=== PATIENT | male | born 1980 | race African-American/Black ===

== ENCOUNTER 2019-03-29 03:51 | Inpatient (IN) | payer MEDICAID ==
[~2019-03-29] VITALS: Ht 180.3 cm; Wt 76.7 kg
[2019-03-29 03:51] VITALS: BP 125/82
--- NOTE | 2019-03-29 04:00 | NUR ---
SI PRECAUTIONS IN PLACE TO BED 05 FOR SAFETY. PT CHANGED INTO GOWN. BELONGINGS BAGGED AND PICKED UP BY SECURITY.
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
--- NOTE | 2019-03-29 04:10 | NUR ---
PT AMBULATED TO WITH STEADY GAIT. URINE SAMPLE COLLECTED.
--- NOTE | 2019-03-29 04:17 | NUR ---
SANDWICH PROVIDED PER PT REQUEST FOR FOOD.
--- NOTE | 2019-03-29 04:19 | NUR ---
EMT AT BEDSIDE PERFORMING EKG.
--- NOTE | 2019-03-29 04:19 | NUR ---
EKG PERFORMED AT BEDSIDE
--- NOTE | 2019-03-29 04:19 | NUR ---
LAB AT BEDSIDE DRAWING LABS.
[2019-03-29 04:34] LABS: BASOPHILS # (AUTO) 0.1 K/uL (0.00-0.22); BASOPHILS % (AUTO) 0.6 % (0.0-2.0); EOSINOPHILS # (AUTO) 0.2 K/uL (0-0.4); EOSINOPHILS % (AUTO) 2.3 % (0.0-4.0); HEMATOCRIT 38.4 % (36-52); LYMPHOCYTES % (AUTO) 44.9 % (20.5-51.1); MEAN CORPUSCULAR HEMOGLOBIN 27 pg (27-31); MEAN CORPUSCULAR HGB CONC 34 g/dL (33-37); MEAN CORPUSCULAR VOLUME 80.5 fL (80-94); MONOCYTES # (AUTO) 0.7 K/uL (0.8-1.0); MONOCYTES % (AUTO) 8.3 % (1.7-9.3); NEUTROPHILS # (AUTO) 3.9 K/uL (1.8-7.7); NEUTROPHILS % (AUTO) 43.9 % (42.2-75.2); PLATELET COUNT (AUTO) 171 K/uL (140-450); RED BLOOD CELL COUNT(AUTO) 4.78 MIL/uL (4.20-6.10); RED CELL DISTRIBUTION WIDTH 13.7 % (11.6-13.7); WHITE BLOOD COUNT (AUTO) 8.9 K/uL (4.8-10.8)
[2019-03-29 04:42] LABS: BARBITURATE, URINE NEG. ng/ml (NEG <=200); BENZODIAZEPINE, URINE NEG. ng/mL (NEG <=200); CANNABINOID, URINE POS. ng/mL (NEG <=50); COCAINE, URINE NEG. ng/mL (NEG <=300); OPIATE, URINE NEG. ng/mL (NEG <=2000); PHENCYCLIDINE SCREEN,URINE NEG. ng/mL (NEG <=25)
[2019-03-29 04:48] LABS: ANION GAP 11.6 (8-16); CARBON DIOXIDE 28.3 mmol/L (21-32); CHLORIDE 106 mmol/L (98-107); CREATININE 1.1 mg/dL (0.7-1.3); GFR ARICAN-AMERICAN 96 mL/min (>90); GLUCOSE 93 mg/dL (74-106); POTASSIUM 3.9 mmol/L (3.5-5.1); SODIUM SERUM 142 mmol/L (136-145); UREA NITROGEN, BLOOD 8 mg/dL (7-18)
[2019-03-29 04:54] LABS: ACETAMINOPHEN < 0.5 ug/ml (10-30); ALBUMIN 3.3 g/dL (3.4-5.0); ASPARTATE AMINOTRANSFERASE 18 U/L (15-37); SALICYLATE < 2.8 mg/dL (2.8-20.0); TOTAL BILIRUBIN 0.3 mg/dL (0.0-1.0)
[2019-03-29] MEDS ORDERED: NACL 0.9% 1,000 ML IV ONE (05:00)
--- NOTE | 2019-03-29 05:00 | NUR ---
PT SLEEPING IN BED. SKIN WARM, DRY. BREATHING EVEN, UNLABORED. SITTER AT BEDSIDE.
--- NOTE | 2019-03-29 06:12 | NUR ---
LABS DRAWN AT BEDSIDE.
--- NOTE | 2019-03-29 06:19 | NUR ---
PT SLEEPING IN BED. SKIN WARM, DRY. BREATHING EVEN, UNLABORED. SITTER AT BEDSIDE.
--- NOTE | 2019-03-29 07:12 | NUR ---
RECEIVED REPORT FROM PM RN. PT SLEEPING COMFORTABLY IN HIS BED. PT ON 5150 HOLD FOR SI .
--- NOTE | 2019-03-29 07:42 | NUR ---
Dr. Wisdom evaluating patient at bedside.
--- NOTE | 2019-03-29 07:43 | NUR ---
Pt eating breakfast, calm and relaxed.
--- NOTE | 2019-03-29 07:52 | NUR ---
Telepsychiatry consultation ordered as requested by Dr. Wisdom.
--- NOTE | 2019-03-29 08:22 | NUR ---
TELEPSYCH SET AT BEDSIDE.
--- NOTE | 2019-03-29 08:29 | NUR ---
PT RESTING COMFORTABLY IN HIS BED. PT ATE 40% OF HIS BREAKFAST. NO DISTRESS NOTED.
--- NOTE | 2019-03-29 09:52 | NUR ---
pt sleeping in his bed.
--- NOTE | 2019-03-29 10:49 | NUR ---
received call from from . updated him about pt. will call at 1052 and talk to patient.
--- NOTE | 2019-03-29 10:53 | NUR ---
Dr. Arreola evaluating patient via telepsychiatry.
--- NOTE | 2019-03-29 11:18 | NUR ---
telepsych consult done with pt by . pt is aaox4. pt states to have moved in to his cousin house from [place] to [place] yesterday.pt is unable to remember cousin home adress but has phone number with him. pt states not to inform her rt now, will contact her once he is stable and good to be discharged. pt states to have been on respiridol, haladol, seroquel before pts changed to abilify and zyprexa. per pt, his meds makes him to hear more voices than before, so he stopped taking meds. pt is calm and cooperative at this time. states has no intent to harm himslef or has no suicidial ideation this moment. lying comfortably in his bed, normal behavior. will continue to monitor pt.
[2019-03-29] MEDS ORDERED: OLANZapine 5 MG TAB PO SCH (11:25)
--- NOTE | 2019-03-29 12:49 | NUR ---
F/U with potential facilities: [facility]: s/w Lori, states they did not end up having D/Cs, no beds opening today. [facility]: s/w Sara, states no openings today. [facility]: s/w Tom, states open beds. Packet faxed for review. aniceto continue to look for placement. Will contact with any updates.
--- NOTE | 2019-03-29 13:44 | NUR ---
pt sleeping comfortably in his bed. waiting for the placement facility.
[2019-03-29] MEDS ORDERED: DOCUSATE SODIUM 100 MG GELCAP PO PRN (14:00)
[2019-03-29] MEDS ORDERED: ZOLPIDEM 5 MG TAB PO PRN (14:00)
[2019-03-29] MEDS ORDERED: ONDANSETRON 4 MG/2 ML VIAL IM/IVP PRN (14:00)
[2019-03-29] MEDS ORDERED: HYDROcodone/APAP 5/325 MG 1 TAB TAB PO PRN (14:00)
[2019-03-29] MEDS ORDERED: ACETAMINOPHEN 325 MG TAB PO PRN (14:00)
[2019-03-29] MEDS ORDERED: LORazepam 2 MG/ML VIAL IVP PRN (14:00)
[2019-03-29] MEDS ORDERED: LORazepam 2 MG/ML VIAL IM/IVP PRN (14:00)
[2019-03-29] MEDS ORDERED: MORPHINE SULFATE 2 MG/ML SYR IVP PRN (14:00)
--- NOTE | 2019-03-29 14:30 | NUR ---
PT ADMITTED TO ICU FROM ER FOR 5150 HOLD, SUICIDAL IDEATION. REPORT RECEIVED FROM BARRY HOLLIS AT BEDSIDE. PT IS AAOX4, COOPERATIVE, DENIES SUICIDAL THOUGHTS AT THIS TIME. PT IS AFEBRILE, DENIES PAIN. NORMAL SINUS RHYTHM ON MONITOR. S1 +S2 HEARD. PT IS ON ROOM AIR, LUNGS SOUND CLEAR BILATERALLY. NO SIGNS OF SOB OR ANY RESPIRATORY DISTRESS NOTED. ABDOMEN SOFT, NONTENDER, BOWEL SOUNDS PRESENT. PERIPHERAL IV G18 TO LEFT HAND ASYMPTOMATIC, PATENT AND INTACT WITH GOOD BLOOD RETURN. PT IS CONTINENT, USES URINAL AT BEDSIDE. SKIN IS INTACT, DRY AND WARM TO TOUCH. BED IN LOWEST POSITION, LOCKED, AND ALARM ON. ALL SAFETY PRECAUTIONS IN PLACE. CALL LIGHT WITHIN REACH. WILL CONTINUE TO MONITOR.
--- NOTE | 2019-03-29 14:31 | NUR ---
Patient will be admitted to care of . Admited to ICU. Will go to room 6. Belongings list completed. Report to BARRY Santiago. Pt stable at time of discharge.
[2019-03-29] MEDS: NACL 0.9% 1,000 ML IV SCH (14:40)
[2019-03-29 15:41] LABS: PROTHROMBIN TIME 10.1 secs (10.8-13.4)
[2019-03-29 15:46] LABS: CHOL/HDL RATIO 2.7 (1-4.5); MAGNESIUM 1.6 mg/dL (1.8-2.4); PHOSPHORUS 3.9 mg/dL (2.5-4.9); THYROID STIMULATING HORMONE 1.6 uIU/mL (0.34-3.74)
--- NOTE | 2019-03-29 15:50 | NUR ---
PT IS BRADYCARDIC, HR IN LOW 50'S BUT ASYMPTOMATIC. RESIDENT PHYSICIAN DR. AVILES MADE AWARE. NO NEW ORDER AT THIS TIME. WILL CONTINUE TO MONITOR.
[2019-03-29 16:00] VITALS: BP 118/70
[2019-03-29] MEDS ORDERED: MULTIVITAMIN-12 10 ML, THIAMINE 100 MG, MAGNESIUM SULFATE 50% 2,000 MG, FOLIC ACID 1 MG... IV SCH ×5 (16:00)
[2019-03-29] MEDS: chlordiazePOXIDE 25 MG CAP PO SCH (16:26)
--- NOTE | 2019-03-29 17:45 | NUR ---
PT HAD 100% OF DINNER. ABLE TO EAT INDEPENDENTLY. NO SIGNS OF DISTRESS AT THIS TIME. PT IS CALM AND COOPERATIVE. SAFETY MEASURES ENSURED. WILL CONTINUE TO MONITOR.
[2019-03-29 18:25] LABS: APPEARANCE,URINE CLEAR (CLEAR); BILIRUBIN,URINE NEGATIVE (NEGATIVE); BLOOD, URINE NEGATIVE (NEGATIVE); LEUKOCYTE ESTERASE ,URINE NEGATIVE (NEGATIVE); NITRITE, URINE NEGATIVE (NEGATIVE); PH,URINE 7.5 (5.0-9.0); UGLUCOSE NEGATIVE (NEGATIVE)
[2019-03-29 18:27] LABS: COLOR,URINE STRAW (YELLOW)
[2019-03-29 18:31] LABS: BARBITURATE, URINE NEG. ng/ml (NEG <=200); BENZODIAZEPINE, URINE NEG. ng/mL (NEG <=200); CANNABINOID, URINE POS. ng/mL (NEG <=50); COCAINE, URINE NEG. ng/mL (NEG <=300); OPIATE, URINE NEG. ng/mL (NEG <=2000); PHENCYCLIDINE SCREEN,URINE NEG. ng/mL (NEG <=25)
--- NOTE | 2019-03-29 19:05 | NUR ---
REPORT GIVEN AT BEDSIDE BY DAY NURSE. PT LYING IN BED WITH EYES CLOSED. PT ON 5150 HOLD. 1:1 SITTER FOR SUICIDAL IDEATION. PT DENIES SI OR HI AT THIS TIME. PERRL BOTH EYES. ABLE TO FOLLOW AND VOICE COMMANDS. BREATHING EVEN AND UNLABORED. ON ROOM AIR. HEART SOUND REGULAR. LUNG SOUNDS SYMMETRICAL AND CLEAR BILATERALLY. BOWEL SOUNDS PRESENT IN ALL QUADRANTS.PT ON REGULAR DIET. PT CONTINENT AND USING URINAL WHEN NEEDED. SKIN INTACT. PERIPHERAL IV LOCATED IN LEFT HAND 20 GAUGE RUNNING NORMAL SALINE 60ML/HR. SCDs IN PLACE. SIDE RAILS UP. SAFETY PRECAUTIONS IN PLACE. WILL CONTINUE TO MONITOR CLOSELY.
--- NOTE | 2019-03-29 19:14 | NUR ---
REPORT GIVEN TO FUR BUYER RN FOR CONTINUITY OF CARE. PT IS IN STABLE CONDITION.
--- NOTE | 2019-03-29 19:50 | NUR ---
pt used bedside urinal independently. placed urinal back at bedside. 360 ml output of clear yellow urine. asked pt if ok "yes" asked pt if he needed anything at this time "no, i'm ok". will continue to monitor. vss. safety measures in place.
[2019-03-29 20:00] VITALS: BP 131/91
--- NOTE | 2019-03-29 20:40 | NUR ---
received phone call from sister maranda, updated regarding pt condition. phone number: [phone]
--- NOTE | 2019-03-29 21:40 | NUR ---
PT USING URINAL AT THIS TIME. ABLE TO USE INDEPENDENTLY. 600 ML OF CLEAR YELLOW URINE. VSS. WILL CONTINUE TO MONITOR.
--- NOTE | 2019-03-29 23:28 | NUR ---
pt lying in bed. asleep at this time. urinal at bedside. all safety measures in place. vss. will continue to monitor.
[2019-03-30] VITALS: BP 133/87
--- NOTE | 2019-03-30 00:20 | NUR ---
pt sat up in bed. used urinal by self. 600ml of clear yellow urine given to nurse. pt laid back down. when asked if he is doing okay or needs anything,pt replies "im fine". safety measures in place. 1:1 sitter present. vss. will continue to monitor pt
--- NOTE | 2019-03-30 02:06 | NUR ---
pt lying in bed. sleeping. respirations wnl and unlabored. oxygen on room air 98%. HR 54 with no s/s of distress noted. will continue to monitor.
--- NOTE | 2019-03-30 03:12 | NUR ---
Notified Graciela REDDY , At this time there are still no vacancy at any of the designated facilities , will notify ICU charge nurse if placement is found.
[2019-03-30 04:00] VITALS: BP 133/84
--- NOTE | 2019-03-30 04:25 | NUR ---
LAB DRAW DONE FOR PT. TOLERATED WELL. COOPERATED. PT STATES UNDERSTANDS LABS TO BE DRAWN. VSS. NO SIGNS /SYMPTOMS OF DISTRESS. WILL CONTINUE TO MONITOR
--- NOTE | 2019-03-30 04:41 | NUR ---
PT USED URINAL BY SELF. 300 OUTPUT OF CLEAR YELLOW URINE. WENT BACK TO SLEEP WHEN FINISHED. WILL CONTINUE TO MONITOR. SAFTEY MEASURES IN PLACE, 1:1 SITTER PRESENT AT BEDSIDE.
[2019-03-30 06:13] LABS: ANION GAP 10.7 (8-16); CARBON DIOXIDE 27.9 mmol/L (21-32); POTASSIUM 4.6 mmol/L (3.5-5.1)
--- NOTE | 2019-03-30 06:13 | NUR ---
pt moving in bed. states "im not cold" refused extra blankets. vss. calm. cooperative at this time denies si/hi. pt able to make needs known. responds to name. safety measures in place. will continue to monitor. no beds available at this time .will stay in icu-tele status.
[2019-03-30 06:18] LABS: MAGNESIUM 1.9 mg/dL (1.8-2.4); PHOSPHORUS 3.7 mg/dL (2.5-4.9)
[2019-03-30] MEDS: NACL 0.9% 1,000 ML IV SCH (06:21)
--- NOTE | 2019-03-30 07:01 | NUR ---
report given to day nurse . pt vss. no s/s of distress. safety measures in place. no si/hi.
[2019-03-30 07:09] LABS: BASOPHILS % (AUTO) 0.3 % (0.0-2.0); EOSINOPHILS # (AUTO) 0.3 K/uL (0-0.4); EOSINOPHILS % (AUTO) 3.1 % (0.0-4.0); HEMATOCRIT 40.7 % (36-52); HEMOGLOBIN 13.7 g/dL (12.0-18.0); LYMPHOCYTES % (AUTO) 36.6 % (20.5-51.1); MEAN CORPUSCULAR HEMOGLOBIN 27 pg (27-31); MEAN CORPUSCULAR HGB CONC 34 g/dL (33-37); MEAN CORPUSCULAR VOLUME 81.2 fL (80-94); MONOCYTES # (AUTO) 0.7 K/uL (0.8-1.0); MONOCYTES % (AUTO) 9.1 % (1.7-9.3); NEUTROPHILS # (AUTO) 4.2 K/uL (1.8-7.7); NEUTROPHILS % (AUTO) 50.9 % (42.2-75.2); PLATELET COUNT (AUTO) 168 K/uL (140-450); RED BLOOD CELL COUNT(AUTO) 5.01 MIL/uL (4.20-6.10); RED CELL DISTRIBUTION WIDTH 14.1 % (11.6-13.7); WHITE BLOOD COUNT (AUTO) 8.3 K/uL (4.8-10.8)
--- NOTE | 2019-03-30 07:15 | NUR ---
received pt from pm nurse. pt is on 5150 hold. pt sleeping but arousable. bedside monitor shows sr-sb. 45s-66s. on RA, no s/s of respiratory distress noted. lung sound clear. pt has iv to left hand # 20 running NS at 60 cc/hr. pt able to ambulate. per pm nurse. we are looking for placement for this pt. all safety measure in place, introduced myself. poc explained. pt verbalized understanding. pt stated he does not have any plan to hurt himself.
--- NOTE | 2019-03-30 07:41 | NUR ---
oral care done. offered pt breakfast tray.
--- NOTE | 2019-03-30 07:57 | NUR ---
DR. HOOD WITH HIS TEAM IN TO CHECK PT, PT STATED HE IS FINE. DENIES PAIN. GOOD APPETITE. DENIES HEARING ANY VOICE.
[2019-03-30 08:00] VITALS: BP 96/55
[2019-03-30] MEDS: chlordiazePOXIDE 25 MG CAP PO SCH ×3 (08:06→17:07)
[2019-03-30] MEDS: FOLIC ACID 1 MG TAB PO SCH (08:07)
[2019-03-30] MEDS: MULTIVITAMIN 1 TAB PO SCH (08:07)
[2019-03-30] MEDS: OLANZapine 5 MG TAB PO SCH (08:07)
[2019-03-30] MEDS: THIAMINE 100 MG TAB PO SCH (08:07)
--- NOTE | 2019-03-30 08:13 | NUR ---
PATIENT HAS BEEN SCREENED AND CATEGORIZED LOW NUTRITION RISK. PATIENT WILL BE SEEN WITHIN 7 DAYS OF ADMISSION. 04/05/[address]
--- NOTE | 2019-03-30 08:30 | NUR ---
CALLED RESIDENT DR. MARADIAGA, NOTIFIED PT HAS SINUS BRADYCARDIA BUT WITHOUT ANY DISCOMFORT.
[2019-03-30] MEDS ORDERED: LACTULOSE 20 GM/30 ML UDC PO SCH (09:30)
--- NOTE | 2019-03-30 10:10 | NUR ---
transferred pt to tele 110 A.
[2019-03-30 12:00] VITALS: BP 101/50
--- NOTE | 2019-03-30 12:42 | NUR ---
[facility] s/w Jett no beds [facility] s/w Dagmar no beds [facility] s/w Hardeep no beds [facility] s/w Caity no beds [facility] s/w Chela zambrano faxed for review
--- NOTE | 2019-03-30 12:46 | NUR ---
PT SLEEPING AFTER EATING LUNCH. PT HAD A GOOD APPETITE. ATE 100% OF THE LUNCH TRAY.
--- NOTE | 2019-03-30 12:48 | NUR ---
[facility] s/w Lo call back in 2 hours [facility] s/w Chavez no beds [facility] s/w neida no beds
--- NOTE | 2019-03-30 14:34 | NUR ---
PT STATED HE IS HUNGRY, CALLED [employer] AND OFFERED PT SANDWICH.
--- NOTE | 2019-03-30 15:53 | NUR ---
pt sleeping at this moment. no discomfort or pain noted.
[2019-03-30 16:00] VITALS: BP 114/66
--- NOTE | 2019-03-30 17:40 | NUR ---
[facility] s/w no beds
--- NOTE | 2019-03-30 17:50 | NUR ---
pt's SISTER CALLED IN regarding D/C plan. notified we are looking for placement. PT'S SISTER TALKED TO HER BROTHER Fernando on the phone.
--- NOTE | 2019-03-30 19:10 | NUR ---
RECIEVED PT. AAOX4 , NID , IV SITE INTACT AND PATENT . PT STATES I'M SCARE - OPEN CONVERSATION INITIATED BUT PT REFUSED TO SAY FURTHER ABOUT HIS ANXIETY -WILL MEDICATE ORDERED -WILL CONT. TO MONITOR.
[2019-03-30 20:00] VITALS: BP 120/62
--- NOTE | 2019-03-30 20:38 | NUR ---
ATIVAN TIV GIVEN ORDERED - V/S WNL - WILL CONT. TO MONITOR.
[2019-03-31] VITALS: BP 110/60
--- NOTE | 2019-03-31 | NUR ---
MADE ROUNDS RESP . EVEN AND UNLABORED - WILL CONT. TO MONITOR.
--- NOTE | 2019-03-31 04:00 | NUR ---
MADE ROUNDS , NO COMPLAIN MADE AT THIS TIME . RESP. EVEN AND UNLABORED.
--- NOTE | 2019-03-31 05:23 | NUR ---
Still no vacancy at any of the designated places , will endorsed to AM shift to continue to look for placement , charge nurse Marlene REDDY made aware.
--- NOTE | 2019-03-31 07:20 | NUR ---
RECEIVED BEDSIDE REPORT FROM FARMWORKER FIELD CROP NURSE. PT IS ASLEEP, NO S/S OF ANY ACUTE DISTRESS NOTED. SITTER IS AT THE DOORWAY. PT IS ON ROOM AIR, SKIN INTACT. IV SITE NOTED IN THE L HAND 20 G, SALINE LOCKED. PT IS ON A REGULAR DIET. WILL CONTINUE TO MONITOR.
[2019-03-31 08:00] VITALS: BP 108/76
[2019-03-31] MEDS: MULTIVITAMIN 1 TAB PO SCH (09:37)
[2019-03-31] MEDS: FOLIC ACID 1 MG TAB PO SCH (09:38)
[2019-03-31] MEDS: OLANZapine 5 MG TAB PO SCH (09:38)
[2019-03-31] MEDS: THIAMINE 100 MG TAB PO SCH (09:38)
[2019-03-31] MEDS: chlordiazePOXIDE 25 MG CAP PO SCH (09:38)
--- NOTE | 2019-03-31 09:40 | NUR ---
SCHEDULED AM MEDS ADMINISTERED, PT TOLERATED WELL
--- NOTE | 2019-03-31 09:58 | NUR ---
Recieved report from shift boss,there are still no avail contracted beds [facility] WILL CONT TO ASSIST IN PLACEMENT NEEDED
[2019-03-31] MEDS ORDERED: OLAN5TAB1 PO (10:44)
--- NOTE | 2019-03-31 11:39 | NUR ---
Called the following facilities [facility] s/w Jett, fax packet for wait list [facility] s/w Jeremiah fax packet for wait list [facility] s/w Sed[place] no beds [facility] s/w Hardeep, fax packet for review [facility] no answer. Left vm at [phone] [place] s/w Chela no beds [facility] s/w Lopez, packet fax for review [facility] s/w Marlene no beds [facility] s/w Kalin no beds [facility] s/w Joycelyn packet fax for review [facility] s/w Jyoti, they are only neto psych 55 and over [facility] s/w Sariah Rolle no beds, call back at 1500 [facility] s/w [place] no beds
--- NOTE | 2019-03-31 12:15 | NUR ---
PT EATING LUNCH AT THIS TIME.
--- NOTE | 2019-03-31 13:00 | NUR ---
PT HAS DC'D. PT WAS GIVEN DISCHARGE INSTRUCTIONS AND HIS PRESCRIPTION. PT VERBALIZED UNDERSTANDING TO THE IMPORTANCE OF ATTENDING HIS FOLLOW UP APPOINTMENT AND TAKING HIS ZYPREXA PRESCRIBED. PT'S CLOTHES AND PHONE WERE RETURNED BY SECURITY. IV SITE AND WRIST BANDS WERE REMOVED. PT LEFT IN STABLE CONDITION, PICKED UP BY HIS COUSIN.
== END 2019-03-31 13:00 | disposition home or self-care (01) | DRG 775 ==
LOC: MED 03:51 → MIC 13:56 → MTU 03-30 10:10
PROVIDERS: ADMIT General Practice; ATTEND General Practice
DX: F10.129 Alcohol abuse with intoxication, unspecified (principal); G92 Toxic encephalopathy; E44.1 Mild protein-calorie malnutrition; K72.90 Hepatic failure, unspecified without coma; R45.851 Suicidal ideations; E83.42 Hypomagnesemia; F20.9 Schizophrenia, unspecified; F17.210 Nicotine dependence, cigarettes, uncomplicated; F12.90 Cannabis use, unspecified, uncomplicated; Y90.6 Blood alcohol level of 120-199 mg/100 ml; Z68.23 Body mass index [BMI] 23.0-23.9, adult; Z63.5 Disruption of family by separation and divorce; Y92.89 Other specified places as the place of occurrence of the external cause
CPT/HCPCS: 36415; 71045; 80048; 80053; 80305; 81003; 82140; 83036; 83690; 83735; 84100; 84134; 84443; 85025; 85610; 85730; 87081; 93005; 96360; 99285; A9153; G0480; G0482; J2060; J3411; J3475; J3490; J7030; Q0092

== ENCOUNTER 2019-04-02 16:07 | Inpatient (IN) | payer MEDICAID ==
[~2019-04-02] VITALS: Ht 180.3 cm; Wt 70.3 kg
[~2019-04-02 16:07] MED LIST: OLAN5TAB1 PO
[2019-04-02 16:10] VITALS: BP 124/72
--- NOTE | 2019-04-02 16:20 | NUR ---
DR. ROACH BEDSIDE EVALUATING PT
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
[2019-04-02] MEDS ORDERED: OLANZapine 5 MG ODT SL ONE (16:35)
--- NOTE | 2019-04-02 16:55 | NUR ---
ACCOMPANIED PT TO THE BATHROOM WITH STEADY GAIT. PT WAS GIVEN A URINE CUP
--- NOTE | 2019-04-02 16:55 | NUR ---
URINE SPECIMEN OBTAINED. GAVE TO RETURNED GOODS SORTER
[2019-04-02 17:09] LABS: BASOPHILS % (AUTO) 0.5 % (0.0-2.0); EOSINOPHILS # (AUTO) 0.1 K/uL (0-0.4); EOSINOPHILS % (AUTO) 1.4 % (0.0-4.0); HEMOGLOBIN 14.3 g/dL (12.0-18.0); LYMPHOCYTES # (AUTO) 2.8 K/uL (2.0-11.5); LYMPHOCYTES % (AUTO) 30.9 % (20.5-51.1); MEAN CORPUSCULAR HEMOGLOBIN 27 pg (27-31); MEAN CORPUSCULAR HGB CONC 34 g/dL (33-37); MEAN CORPUSCULAR VOLUME 79.4 fL (80-94); MONOCYTES # (AUTO) 0.6 K/uL (0.8-1.0); MONOCYTES % (AUTO) 6.5 % (1.7-9.3); NEUTROPHILS # (AUTO) 5.6 K/uL (1.8-7.7); NEUTROPHILS % (AUTO) 60.7 % (42.2-75.2); PLATELET COUNT (AUTO) 189 K/uL (140-450); RED BLOOD CELL COUNT(AUTO) 5.29 MIL/uL (4.20-6.10); WHITE BLOOD COUNT (AUTO) 9.2 K/uL (4.8-10.8)
[2019-04-02 17:15] LABS: APPEARANCE,URINE CLEAR (CLEAR); BILIRUBIN,URINE NEGATIVE (NEGATIVE); BLOOD, URINE NEGATIVE (NEGATIVE); COLOR,URINE YELLOW (YELLOW); LEUKOCYTE ESTERASE ,URINE NEGATIVE (NEGATIVE); NITRITE, URINE NEGATIVE (NEGATIVE); UGLUCOSE NEGATIVE (NEGATIVE)
[2019-04-02 17:19] LABS: BARBITURATE, URINE NEG. ng/ml (NEG <=200); BENZODIAZEPINE, URINE POS. ng/mL (NEG <=200); CANNABINOID, URINE POS. ng/mL (NEG <=50); COCAINE, URINE NEG. ng/mL (NEG <=300); OPIATE, URINE NEG. ng/mL (NEG <=2000); PHENCYCLIDINE SCREEN,URINE NEG. ng/mL (NEG <=25)
--- NOTE | 2019-04-02 17:39 | NUR ---
CHECKED ON PT. LYING COMFORTABLY IN HIS BED.
[2019-04-02 17:44] LABS: ALBUMIN 3.9 g/dL (3.4-5.0); ANION GAP 13.5 (8-16); ASPARTATE AMINOTRANSFERASE 38 U/L (15-37); CARBON DIOXIDE 25.9 mmol/L (21-32); CHLORIDE 106 mmol/L (98-107); CREATININE 1.3 mg/dL (0.7-1.3); GFR ARICAN-AMERICAN 79 mL/min (>90); GLUCOSE 99 mg/dL (74-106); POTASSIUM 4.4 mmol/L (3.5-5.1); SODIUM SERUM 141 mmol/L (136-145); TOTAL BILIRUBIN 0.3 mg/dL (0.0-1.0); UREA NITROGEN, BLOOD 16 mg/dL (7-18)
[2019-04-02 17:46] LABS: SALICYLATE < 2.8 mg/dL (2.8-20.0)
[2019-04-02 17:47] LABS: ACETAMINOPHEN < 0.5 ug/ml (10-30)
--- NOTE | 2019-04-02 19:33 | NUR ---
PT SLEEPING COMFORTABLY IN BED. AROUSABLE TO VERBAL STIMULI. SKIN NORMAL, WARM, DRY. BREATHING EVEN, UNLABORED. SI PRECAUTIONS IMPLEMENTED. SITTER AT BEDSIDE FOR SAFETY.
--- NOTE | 2019-04-02 20:20 | NUR ---
TELEPSYCH REQUEST INITIATED
--- NOTE | 2019-04-02 21:07 | NUR ---
DR. NELSON, TELE PSYCH MD TALKING TO PT AT THIS TIME.
--- NOTE | 2019-04-02 22:49 | NUR ---
[facility] has received the chart via fax and will begin calling [facility] contracted facilities for bed placement.
--- NOTE | 2019-04-02 23:07 | NUR ---
Called the following [place] [facility] contracted psych facilities regarding bed placement. [facility], spoke with Joy. No beds available tonight, packet was faxed for AM review pending discharges. [facility], spoke with Brandyn. [facility], spoke with Marianne, no MediCal beds available tonight. [facility], spoke with Jannet. No beds available tonight and they are not accepting any faxed packets at this time. [facility], spoke with Philip, no beds available tonight. [facility], spoke with Caity, no beds tonight. [facility], spoke with Edwardo, no medi-jose beds tonight. [facility], spoke with Brittani, no beds tonight. [facility], spoke with Josué, no beds tonight. [facility], spoke with Rogers, no male beds available. [facility], spoke with Demarcus. No medi-jose beds available tonight. [facility], spoke with Dora, no beds available tonight. [facility], spoke with Brandyn, no beds at this time. [facility], spoke with Alverto. Possible bed, packet was faxed per request. Alver[facility] says chart will need to be reviewed and if they can accommodate the patient they will contact [facility] or [facility] ED. [facility], spoke with Amarjit, no beds available at all tonight. [facility] will continue to call for placement and will INFORM the ED if and when a bed becomes available. [facility] will continue to monitor ED notes.
--- NOTE | 2019-04-02 23:30 | NUR ---
PT IN BED ASLEEP, EASY TO AROUSE, RESPONSIVE TO VERBAL AND TACTILE STIMULI, ABLE TO MAKE NEEDS KNOWN, VSS AT THIS TIME. WILL CONTINUE TO MONITOR CLOSELY.
[2019-04-03] MEDS ORDERED: MORPHINE SULFATE 2 MG/ML SYR IVP PRN (00:15)
[2019-04-03] MEDS ORDERED: FAMOTIDINE 20 MG/2 ML VIAL IV PRN (00:15)
[2019-04-03] MEDS ORDERED: ACETAMINOPHEN 325 MG TAB PO PRN (00:15)
[2019-04-03] MEDS ORDERED: HYDROcodone/APAP 7.5/325 MG 1 TAB PO PRN (00:15)
[2019-04-03] MEDS ORDERED: DOCUSATE SODIUM 100 MG GELCAP PO PRN (00:15)
[2019-04-03] MEDS ORDERED: ONDANSETRON 4 MG/2 ML VIAL IM/IVP PRN (00:15)
[2019-04-03] MEDS ORDERED: LORazepam 2 MG/ML VIAL IM/IVP PRN ×3 (00:15→01:35)
--- NOTE | 2019-04-03 01:33 | NUR ---
RECEIVED REPORT FROM BARRY DELATORRE. TRANSFER OF CARE AT THIS TIME. PT IS SLEEPING COMFORTABLY. AROUSABLE TO VERBAL STIMULI. SKIN WARM, DRY, NORMAL IN COLOR. BREATHING EVEN, UNLABORED. AWAITING CLEAN BED ON MS FLOOR.
[2019-04-03] MEDS ORDERED: NICOTINE TRANSD SYS 14 MG/24 HR PATCH TD SCH (02:00)
[2019-04-03 02:03] LABS: PROTHROMBIN TIME 9.7 secs (10.8-13.4)
--- NOTE | 2019-04-03 02:06 | NUR ---
Patient will be admitted to care of Dr. Giles. Admited to MS. Will go to room 110B. Belongings list completed. Report to BARRY Stauffer.
[2019-04-03 02:09] LABS: CHOL/HDL RATIO 2.5 (1-4.5); FREE T4 (FREE THYROXINE) 0.58 ng/dL (0.76-1.46); MAGNESIUM 1.7 mg/dL (1.8-2.4); PHOSPHORUS 5.4 mg/dL (2.5-4.9); THYROID STIMULATING HORMONE 2.55 uIU/mL (0.34-3.74)
[2019-04-03 02:10] VITALS: BP 122/70
--- NOTE | 2019-04-03 02:10 | NUR ---
ADMITTED A 38 M FROM ER. CAME BY WHEELCHAIR WITH ER NURSE DUE TO SUICIDAL THOUGHTS. AWAKE, ALERT AND ORIENTED X4. MED SURG. ON 5150 HOLD. WITH 1;1 SITTER ORDERED. PT'S ROOM FREE OF ANY OBJECT THAT CAN HARM PT. HAS HL ON THE RT FA G#20. CLEAR AND PATENT. BED ON LOW POSITION. SIDE RAILS UP X2. PLAN OF CARE DISCUSSED AND VERBALIZED UNDERSTANDING. WILL CONTINUE TO MONITOR WHILE FOLLOWING UP ADMIT ORDERS.
[2019-04-03] MEDS: NACL 0.9% 1,000 ML IV SCH ×3 (02:13→17:08)
[2019-04-03 03:11] LABS: CKMB RELATIVE INDEX 1.1 (0.0-2.5); CREATINE KINASE MB 16.1 ng/mL (0-3.6)
[2019-04-03] MEDS ORDERED: traZODone 50 MG TAB PO SCH ×3 (03:15→21:00)
--- NOTE | 2019-04-03 03:18 | NUR ---
MAGNESIUM LEVEL 1.7 DR GARCIA MADE AWARE. HE SAID HE WILL GET BANANA BAG THIS AM AND THAT HAS SOME MAGNESIUM SULFATE IN IT.
--- NOTE | 2019-04-03 05:45 | NUR ---
GOT UP TO THE RESTROOM AND VOIDED. NO DIFFICULTY IN AMBULATION.
[2019-04-03] MEDS: chlordiazePOXIDE 25 MG CAP PO SCH ×3 (05:48→17:08)
--- NOTE | 2019-04-03 07:27 | NUR ---
RECEIVED BEDSIDE REPORT FROM RN MARCOS. PT STABLE, SLEEPING, BUT EASILY AROUSABLE. NO SIGNS OF DISTRESS NOTED. DENIES PAIN OR SOB. NO REDNESS, SWELLING, OR INFLAMMATION NOTED ON IV SITE. CALL FELIX WITHIN REACH. BED IN LOWEST POSITION. SAFETY MEASURES IN PLACE. PLAN OF CARE REVIEWED. 1:1 SITTER AT BEDSIDE.
--- NOTE | 2019-04-03 07:28 | NUR ---
ENDORSED PT IN STABLE CONDITION TO AM NURSE FOR CONTINUITY OF CARE.
[2019-04-03 08:00] VITALS: BP 127/78
--- NOTE | 2019-04-03 08:17 | NUR ---
PATIENT HAS BEEN SCREENED AND CATEGORIZED LOW NUTRITION RISK. PATIENT WILL BE SEEN WITHIN 7 DAYS OF ADMISSION. 04/09/[address]
[2019-04-03] MEDS: LORATADINE 10 MG TAB PO SCH (08:48)
[2019-04-03] MEDS: NICOTINE TRANSD SYS 14 MG/24 HR PATCH TD SCH (08:48)
[2019-04-03] MEDS: MULTIVITAMIN-12 10 ML, THIAMINE 100 MG, FOLIC ACID 1 MG, MAGNESIUM SULFATE 50% 2,000 MG... IV SCH ×5 (08:50)
--- NOTE | 2019-04-03 08:54 | NUR ---
ADMINISTERED SCHEDULED MEDICATIONS, PT TOLERATED WELL. NO OTHER NEEDS AT THIS TIME.
--- NOTE | 2019-04-03 10:20 | NUR ---
PT STABLE, SLEEPING, BUT EASILY AROUSABLE. NO SIGNS OF DISTRESS NOTED.
--- NOTE | 2019-04-03 12:26 | NUR ---
ADMINISTERED SCHEDULED LIBRIUM, PT TOLERATED WELL. NO OTHER NEEDS AT THIS TIME.
--- NOTE | 2019-04-03 14:26 | NUR ---
PT STABLE, SLEEPING, BUT EASILY AROUSABLE. NO SIGNS OF DISTRESS NOTED. CHEST RISE AND FALL VISIBLY NOTED.
[2019-04-03 16:00] VITALS: BP 118/75
--- NOTE | 2019-04-03 16:15 | NUR ---
VITAL SIGNS TAKEN, PT STABLE. NO NEEDS AT THIS TIME.
--- NOTE | 2019-04-03 17:11 | NUR ---
ADMINISTERED SCHEDULED LIBRIUM AND CHANGED IVF BAG. PT TOLERATED WELL.
--- NOTE | 2019-04-03 19:20 | NUR ---
ENDORSED PT TO BARRY ALEXANDRE FOR CONTINUITY OF CARE. PT STABLE.
--- NOTE | 2019-04-03 19:21 | NUR ---
RECEIVED BEDSIDE REPORT FROM BARRY CHRISTIANSON. NO SIGNS OF S/S NOTED IN ROOM AIR. IV SITE ON RFA, 22G, INTACT, PATENT, ASYMPTOMATIC, INFUSING NS AT 100MLS/HR. SKIN INTACT, WARM AND DRY TO TOUCH. BED IN LOWEST POSITION. SAFETY MEASURES IN PLACE. PLAN OF CARE REVIEWED. SITTER AT BEDSIDE. WILL CONTINUE TO MONITOR.
[2019-04-03] MEDS ORDERED: OLANZapine 5 MG TAB PO SCH (21:00)
[2019-04-03] MEDS: OLANZapine 5 MG TAB PO SCH (21:13)
--- NOTE | 2019-04-03 21:13 | NUR ---
GIVEN TRAZODONE AND OLANZAPINE MD ORDERED. PT TOLERATED WELL. WILL CONTINUE TO MONITOR.
[2019-04-04] VITALS: BP 122/79
[2019-04-04] MEDS: chlordiazePOXIDE 25 MG CAP PO SCH ×2 (00:18→05:21)
--- NOTE | 2019-04-04 00:18 | NUR ---
GIVEN LIBRIUM MD ORDERED. PT TOLERATED WELL. VS CHECKED, WITHIN NORMAL RANGE. WILL CONTINUE TO MONITOR.
--- NOTE | 2019-04-04 01:42 | NUR ---
Still no update on bed placement at contracted [place] Care facilities. Unit will be notified if a bed becomes available. [facility] will continue to monitor RN/MD notes.
[2019-04-04] MEDS: NACL 0.9% 1,000 ML IV SCH (03:28)
--- NOTE | 2019-04-04 03:28 | NUR ---
NS FLUID DONE. HUNG NEW NS 1,000ML, RUNNING @100MLS/HR. PT SLEEPING IN BED.
--- NOTE | 2019-04-04 05:21 | NUR ---
GIVEN LIBRIUM MD ORDERED. PT TOLERATED WELL. BED IN LOW POSITION, WILL CONTINUE TO MONITOR.
--- NOTE | 2019-04-04 06:34 | NUR ---
PT AWAKE, LYING IN THE BED. NO ACUTE DISTRESS NOTED. PT IN STABLE CONDITION.
--- NOTE | 2019-04-04 07:25 | NUR ---
RECEIVED HAND OFF REPORT FROM NEGATIVE STRIPPER NURSE. PT IS AWAKE IN BED PT APPEARS STABLE AND IN NO APPARENT DISTRESS. ALL SAFETY MEASURES ARE IN PLACE WILL CONTINUE TO MONITOR.
[2019-04-04 07:30] LABS: BASOPHILS % (AUTO) 0.4 % (0.0-2.0); EOSINOPHILS # (AUTO) 0.3 K/uL (0-0.4); EOSINOPHILS % (AUTO) 4.1 % (0.0-4.0); HEMATOCRIT 38.3 % (36-52); HEMOGLOBIN 12.9 g/dL (12.0-18.0); LYMPHOCYTES # (AUTO) 3.4 K/uL (2.0-11.5); LYMPHOCYTES % (AUTO) 43.8 % (20.5-51.1); MEAN CORPUSCULAR HEMOGLOBIN 27 pg (27-31); MEAN CORPUSCULAR HGB CONC 34 g/dL (33-37); MEAN CORPUSCULAR VOLUME 79.8 fL (80-94); MONOCYTES # (AUTO) 0.6 K/uL (0.8-1.0); MONOCYTES % (AUTO) 7.2 % (1.7-9.3); NEUTROPHILS # (AUTO) 3.4 K/uL (1.8-7.7); NEUTROPHILS % (AUTO) 44.5 % (42.2-75.2); PLATELET COUNT (AUTO) 164 K/uL (140-450); RED BLOOD CELL COUNT(AUTO) 4.79 MIL/uL (4.20-6.10); RED CELL DISTRIBUTION WIDTH 13.8 % (11.6-13.7); WHITE BLOOD COUNT (AUTO) 7.7 K/uL (4.8-10.8)
[2019-04-04 08:00] VITALS: BP 120/58
[2019-04-04 08:11] LABS: MAGNESIUM 1.7 mg/dL (1.8-2.4); PHOSPHORUS 3.9 mg/dL (2.5-4.9)
[2019-04-04 08:15] LABS: ANION GAP 13.2 (8-16); CARBON DIOXIDE 26.4 mmol/L (21-32); CREATININE 1.1 mg/dL (0.7-1.3); POTASSIUM 4.6 mmol/L (3.5-5.1)
[2019-04-04] MEDS ORDERED: MAGNESIUM OXIDE 400 MG TAB PO SCH (09:11)
[2019-04-04] MEDS: OLANZapine 5 MG TAB PO SCH (09:15)
[2019-04-04] MEDS: NICOTINE TRANSD SYS 14 MG/24 HR PATCH TD SCH (09:16)
[2019-04-04] MEDS: LORATADINE 10 MG TAB PO SCH (09:16)
[2019-04-04] MEDS: MULTIVITAMIN-12 10 ML, THIAMINE 100 MG, FOLIC ACID 1 MG, MAGNESIUM SULFATE 50% 2,000 MG... IV SCH ×5 (09:19)
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
[2019-04-04 11:05] VITALS: BP 121/57
--- NOTE | 2019-04-04 11:46 | NUR ---
REVIEWED DISCHARGE INFORMATION GAVE PATIENT ADDRESS FOR FOLLOW UP APPOINTMENT. ANSWERED ALL QUESTIONS. REMOVED IV IV TIP INTACT. PT AMBULATED OFF THE UNIT WITH ALL PERSONAL BELONGINGS. PT HAD DISCHARGE PRESCRIPTION PT RECEIVED BUS PASS.
== END 2019-04-04 11:25 | disposition home or self-care (01) | DRG 775 ==
LOC: MED 16:07 → MTU 04-03 00:18
PROVIDERS: ADMIT General Practice; ATTEND General Practice
DX: F10.129 Alcohol abuse with intoxication, unspecified (principal); G92 Toxic encephalopathy; E83.42 Hypomagnesemia; E83.39 Other disorders of phosphorus metabolism; F20.9 Schizophrenia, unspecified; R45.851 Suicidal ideations; F17.210 Nicotine dependence, cigarettes, uncomplicated; G47.00 Insomnia, unspecified; Y90.6 Blood alcohol level of 120-199 mg/100 ml; Z79.899 Other long term (current) drug therapy; Z91.14 Patient's other noncompliance with medication regimen; Z83.3 Family history of diabetes mellitus
CPT/HCPCS: 36415; 71045; 80048; 80053; 80305; 81003; 82140; 82150; 82550; 82553; 83036; 83605; 83690; 83735; 83880; 84100; 84439; 84443; 84484; 85025; 85610; 85730; 87081; 93005; 99285; A9153; G0480; G0482; J3411; J3475; J3490; J7030

== ENCOUNTER 2019-04-07 00:45 | Emergency (ER) | payer MEDICAID ==
[~2019-04-07] VITALS: Ht 185.4 cm; Wt 81.6 kg
[2019-04-07 00:47] VITALS: BP_SYST 112; BP_SYST 89; BP_DIAS 58; BP_DIAS 59
--- NOTE | 2019-04-07 00:47 | NUR ---
PT B[facility]ANCE [facility], TAKEN TO BED 5
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
[2019-04-07 01:20] LABS: APPEARANCE,URINE CLEAR (CLEAR); BILIRUBIN,URINE NEGATIVE (NEGATIVE); BLOOD, URINE NEGATIVE (NEGATIVE); COLOR,URINE YELLOW (YELLOW); LEUKOCYTE ESTERASE ,URINE NEGATIVE (NEGATIVE); NITRITE, URINE NEGATIVE (NEGATIVE); UGLUCOSE NEGATIVE (NEGATIVE)
[2019-04-07 01:28] LABS: BARBITURATE, URINE NEG. ng/ml (NEG <=200); BENZODIAZEPINE, URINE POS. ng/mL (NEG <=200); CANNABINOID, URINE POS. ng/mL (NEG <=50); COCAINE, URINE NEG. ng/mL (NEG <=300); OPIATE, URINE NEG. ng/mL (NEG <=2000); PHENCYCLIDINE SCREEN,URINE NEG. ng/mL (NEG <=25)
[2019-04-07 01:31] LABS: BASOPHILS % (AUTO) 0.4 % (0.0-2.0); EOSINOPHILS # (AUTO) 0.4 K/uL (0-0.4); EOSINOPHILS % (AUTO) 3.5 % (0.0-4.0); HEMATOCRIT 36.2 % (36-52); HEMOGLOBIN 12.4 g/dL (12.0-18.0); LYMPHOCYTES # (AUTO) 4.2 K/uL (2.0-11.5); LYMPHOCYTES % (AUTO) 34.2 % (20.5-51.1); MEAN CORPUSCULAR HEMOGLOBIN 27 pg (27-31); MEAN CORPUSCULAR HGB CONC 34 g/dL (33-37); MEAN CORPUSCULAR VOLUME 79.6 fL (80-94); MONOCYTES # (AUTO) 0.7 K/uL (0.8-1.0); MONOCYTES % (AUTO) 5.4 % (1.7-9.3); NEUTROPHILS # (AUTO) 6.9 K/uL (1.8-7.7); NEUTROPHILS % (AUTO) 56.5 % (42.2-75.2); PLATELET COUNT (AUTO) 165 K/uL (140-450); RED BLOOD CELL COUNT(AUTO) 4.55 MIL/uL (4.20-6.10); RED CELL DISTRIBUTION WIDTH 13.9 % (11.6-13.7); WHITE BLOOD COUNT (AUTO) 12.3 K/uL (4.8-10.8)
[2019-04-07 01:43] LABS: ANION GAP 12.7 (8-16); CARBON DIOXIDE 28.6 mmol/L (21-32); CHLORIDE 105 mmol/L (98-107); CREATININE 1.3 mg/dL (0.7-1.3); GFR ARICAN-AMERICAN 79 mL/min (>90); GLUCOSE 101 mg/dL (74-106); POTASSIUM 4.3 mmol/L (3.5-5.1); SODIUM SERUM 142 mmol/L (136-145); UREA NITROGEN, BLOOD 13 mg/dL (7-18)
[2019-04-07 01:57] LABS: ACETAMINOPHEN < 0.5 ug/ml (10-30); ALBUMIN 3.3 g/dL (3.4-5.0); ASPARTATE AMINOTRANSFERASE 29 U/L (15-37); SALICYLATE 2.8 mg/dL (2.8-20.0); THYROID STIMULATING HORMONE 1.48 uIU/mL (0.34-3.74); TOTAL BILIRUBIN 0.3 mg/dL (0.0-1.0)
--- NOTE | 2019-04-07 02:52 | NUR ---
PT CALM AND SLEEPING. NO BEHAVIOR ISSUES. ERMD AWARE. WILL CONTINUE TO MONITOR 1:1 WITH ED STAFF.
--- NOTE | 2019-04-07 05:45 | NUR ---
PT SPOKE WITH DR MUHAMMAD VIA TELEPSYCH
--- NOTE | 2019-04-07 05:53 | NUR ---
SPOKE WITH DR MUHAMMAD AND TAWANNA OKAY FOR RELEASE OF PT. DR TRIPLETT AWARE.
[2019-04-07 06:28] VITALS: BP 110/68
--- NOTE | 2019-04-07 06:28 | NUR ---
PT DISCHARGED WITH PAPERWORK. NO RX PROVIDED. EDUCATED PT REGARDING D/C DIAGNOSIS. PT VERBALIZED UNDERSTANDING OF TEACHING. TOLD PT TO FOLLOW UP WITH PCP/PSYCHIATRIST AND WHEN TO RETURN TO ED. PT VSS. ABLE TO AMBULATE WITH SLOW STEADY GAIT. PROVIDED PT WITH CAB VOUCHER. ALL QUESTIONS ANSWERED.
== END 2019-04-07 06:28 | disposition home or self-care (01) ==
LOC: MED 00:45
DX: R45.851 Suicidal ideations (principal); R44.3 Hallucinations, unspecified; Z79.899 Other long term (current) drug therapy; Z91.14 Patient's other noncompliance with medication regimen
CPT/HCPCS: 36415; 80053; 80305; 81003; 84443; 85025; 99284; G0480; G0482

== ENCOUNTER 2019-04-10 02:33 | Inpatient (IN) | payer MEDICAID ==
[~2019-04-10] VITALS: Ht 185.4 cm; Wt 81.6 kg
[2019-04-10 02:40] VITALS: BP 129/74
--- NOTE | 2019-04-10 02:40 | NUR ---
PT TRANSFERRED FROM [facility] TO BED 5 BY TRENT
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
[2019-04-10 03:21] LABS: EOSINOPHILS # (AUTO) 0.3 K/uL (0-0.4); HEMOGLOBIN 13.9 g/dL (12.0-18.0); MONOCYTES # (AUTO) 0.6 K/uL (0.8-1.0); WHITE BLOOD COUNT (AUTO) 8.5 K/uL (4.8-10.8)
[2019-04-10 03:28] LABS: BASOPHILS % (AUTO) 0.6 % (0.0-2.0); EOSINOPHILS % (AUTO) 3.3 % (0.0-4.0); HEMATOCRIT 40.4 % (36-52); LYMPHOCYTES # (AUTO) 3.6 K/uL (2.0-11.5); LYMPHOCYTES % (AUTO) 42.6 % (20.5-51.1); MEAN CORPUSCULAR HEMOGLOBIN 27 pg (27-31); MEAN CORPUSCULAR HGB CONC 35 g/dL (33-37); MEAN CORPUSCULAR VOLUME 79.3 fL (80-94); MONOCYTES % (AUTO) 7.5 % (1.7-9.3); NEUTROPHILS # (AUTO) 3.9 K/uL (1.8-7.7); PLATELET COUNT (AUTO) 192 K/uL (140-450); RED BLOOD CELL COUNT(AUTO) 5.09 MIL/uL (4.20-6.10); RED CELL DISTRIBUTION WIDTH 13.9 % (11.6-13.7)
[2019-04-10 03:44] LABS: APPEARANCE,URINE CLEAR (CLEAR); BILIRUBIN,URINE NEGATIVE (NEGATIVE); BLOOD, URINE NEGATIVE (NEGATIVE); COLOR,URINE YELLOW (YELLOW); LEUKOCYTE ESTERASE ,URINE NEGATIVE (NEGATIVE); NITRITE, URINE NEGATIVE (NEGATIVE); UGLUCOSE NEGATIVE (NEGATIVE)
[2019-04-10 03:50] LABS: ALBUMIN 3.7 g/dL (3.4-5.0); ANION GAP 13.8 (8-16); ASPARTATE AMINOTRANSFERASE 27 U/L (15-37); CARBON DIOXIDE 28.2 mmol/L (21-32); CHLORIDE 104 mmol/L (98-107); CREATININE 1.1 mg/dL (0.7-1.3); GFR ARICAN-AMERICAN 96 mL/min (>90); GLUCOSE 87 mg/dL (74-106); SALICYLATE 3.6 mg/dL (2.8-20.0); SODIUM SERUM 142 mmol/L (136-145); TOTAL BILIRUBIN 0.3 mg/dL (0.0-1.0); UREA NITROGEN, BLOOD 11 mg/dL (7-18)
[2019-04-10 03:51] LABS: ACETAMINOPHEN < 0.5 ug/ml (10-30)
[2019-04-10 04:14] LABS: BARBITURATE, URINE NEG. ng/ml (NEG <=200); BENZODIAZEPINE, URINE POS. ng/mL (NEG <=200); CANNABINOID, URINE POS. ng/mL (NEG <=50); COCAINE, URINE NEG. ng/mL (NEG <=300); OPIATE, URINE NEG. ng/mL (NEG <=2000); PHENCYCLIDINE SCREEN,URINE NEG. ng/mL (NEG <=25)
[2019-04-10] MEDS ORDERED: NACL 0.9% 1,000 ML IV ONE (04:55)
[2019-04-10] MEDS ORDERED: ONDANSETRON 4 MG/2 ML VIAL IM/IVP PRN (05:40)
[2019-04-10] MEDS ORDERED: LORazepam 2 MG/ML VIAL IVP PRN (05:40)
[2019-04-10] MEDS ORDERED: HYDROcodone/APAP 7.5/325 MG 1 TAB PO PRN (05:40)
[2019-04-10] MEDS ORDERED: DOCUSATE SODIUM 100 MG GELCAP PO PRN (05:40)
[2019-04-10] MEDS ORDERED: ACETAMINOPHEN 325 MG TAB PO PRN (05:40)
[2019-04-10] MEDS ORDERED: FAMOTIDINE 20 MG/2 ML VIAL IV PRN (05:40)
--- NOTE | 2019-04-10 05:40 | NUR ---
RECEIVED REPORT FROM BARRY ADHIKARI. PT IN BED ASLEEP RESTING, VSS AT THIS TIME.
[2019-04-10] MEDS ORDERED: MULTIVITAMIN-12 10 ML, THIAMINE 100 MG, FOLIC ACID 1 MG, MAGNESIUM SULFATE 50% 2,000 MG... IV SCH ×5 (07:00)
--- NOTE | 2019-04-10 07:19 | NUR ---
REPORT GIVEN TO BARRY MACIEL. PT IN STABLE CONDITION AT THIS TIME. 1:1 SITTER AT BEDSIDE.
--- NOTE | 2019-04-10 07:20 | NUR ---
PT ASLEEP. EASILY AROUSBLE BY TOUCH. PT AAO X4, FULL CLEAR SPEECH. EVEN AND UNLABORED BREATHING. NO SIGNS AND SYMPTOMS OF DISTRESS NOTED. SAFETY ENSURED. 1:1 SITTER AT BEDSIDE.
[2019-04-10 07:43] VITALS: BP 126/72
--- NOTE | 2019-04-10 07:43 | NUR ---
RECEIVED BEDSIDE REPORT FROM ER NURSE JANELL. PT IS AAOX4. AMBULATORY BUT ON FALL AND SEIZURE PRECAUTIONS DUE TO ALCOHOL INTOXICATION. PT SKIN IS INTACT. PT HAS IV IN THE LEFT FA, 18G. WILL INFUSE BANANA BAG WHEN BROUGHT BY PHARMACY. EXPLAINED POC TO PT. PT VERBALIZED UNDERSTANDING. NO SITTER CURRENTLY AVAILABLE. WILL SIT WITH OTHERS' HELP WHILE SITTER ARRIVES. BED IN LOW POSITION, CALL LIGHT WITHIN REACH.
--- NOTE | 2019-04-10 07:43 | NUR ---
Patient will be admitted to care of DR HOOD. Admited to TELE . Will go to room 122 B. Belongings list completed. Report to BARRY WRIGHT
[2019-04-10 07:50] LABS: PROTHROMBIN TIME 9.5 secs (10.8-13.4)
[2019-04-10 08:15] LABS: CHOL/HDL RATIO 2.7 (1-4.5); FREE T4 (FREE THYROXINE) 0.68 ng/dL (0.76-1.46); THYROID STIMULATING HORMONE 2.33 uIU/mL (0.34-3.74)
[2019-04-10] MEDS: chlordiazePOXIDE 25 MG CAP PO SCH ×4 (10:12→23:45)
--- NOTE | 2019-04-10 10:19 | NUR ---
ADMINISTERED MORNING MEDS TO PT. PT TOLERATED WELL. WILL CONTINEU TO ROUND FREQUENTLY ON PT. BED IN LOW POSITION, SITTER 1:1 AT BEDSIDE.
[2019-04-10] MEDS: MULTIVITAMIN-12 10 ML, THIAMINE 100 MG, FOLIC ACID 1 MG, MAGNESIUM SULFATE 50% 2,000 MG... IV SCH ×5 (11:47)
--- NOTE | 2019-04-10 12:47 | NUR ---
PT SLEEPING IN BED. ALL NEEDS CURRENTLY MET. WILL CONTINUE TO ROUND FREQUENTLY ON PT.
--- NOTE | 2019-04-10 12:55 | NUR ---
1200 DOSE OF LITHIUM NOT ADMINISTERED DUE TO 0600 DOSE GIVEN AT 1012. PER PHARMACY, OK TO SKIP 1200 DOSE AND GIVE 1800 DOSE.
--- NOTE | 2019-04-10 13:37 | NUR ---
PT SLEEPING. ALL NEEDS MET. NO SIGNS OF DISTRESS OR PAIN NOTED. WILL CONTINEU TO ROUND FREQUENTYL ON PT. BED IN LOW POSITION, CALL LIGHT WITHIN REACH.
--- NOTE | 2019-04-10 15:36 | NUR ---
PT RESTING IN BED AWAITING LATE LUNCH TRAY TO BE DELIVERED. WILL CONTINUE TO ROUND FREQUENTLY ON PT. SITTER 1:1 AT BEDSIDE
[2019-04-10 16:00] VITALS: BP 119/68
--- NOTE | 2019-04-10 17:36 | NUR ---
PT RESTING IN BED. ALL NEEDS MET. WILL CONTINUE TO ROUND FREQUENTLY ON PT.
--- NOTE | 2019-04-10 19:45 | NUR ---
RECEIVED REPORT FROM KYLE REDDY DAYSHIFT NURSE AT BEDSIDE FOR CONTINUITY OF CARE, PT IN STABLE CONDITION. PT IN BED AOX4, SKIN INTACT WITH IV SITE 18G LEFT F/A. RUNNING A BANANA BAG AT 100MLS/HR. PT HAS NO C/O VOICED AT THIS TIME.
--- NOTE | 2019-04-10 19:46 | NUR ---
ENDORSED PT TOT PHYSICIAN'S AIDE FOR CONTINUITY OF CARE. PT IN STABLE CONDITION AT THIS TIME.
[2019-04-10 20:00] VITALS: BP 137/78
--- NOTE | 2019-04-10 20:15 | NUR ---
PT IN BED AOX4. HE HAS NO C/O OF PAIN OR DISTRESS NOTED. PT REQUESTED JUICE WHICH WAS GIVEN TO PT. HE ALSO VOIDED 400MLS IN URINAL. V/S FOLLOWS T 97.8 P 64 R 18 B/P 137/78 02 99% ON ROOM AIR. BED LOW AND CALL FELIX IN REACH. 1:1 SITTER AT BEDSIDE, DUE TO 5150 STATUS.
--- NOTE | 2019-04-10 21:00 | NUR ---
PT GIVEN ORDERED ZYPREXA , DR. WILLIAMSON CONSULTED WITH PT AT BEDSIDE. HE SAID THAT HE WANTS TO KEEP PT OVERNIGHT AND HE WILL BE BACK TOMORROW TO RE-EVALUATE PT IN AM. 1:1 SITTER AT BEDSIDE.
[2019-04-10] MEDS ORDERED: OLANZapine 5 MG TAB PO SCH (21:10)
--- NOTE | 2019-04-10 22:00 | NUR ---
PT IN BED SLEEPING NO S/S OF PAIN OR DISTRESS NOTED. IV FLUIDS COMPLETED. ANOTHER BANANA BAG IS ORDERED FOR TOMORROW AT 11AM. PT IS SALINE LOCKED AT THIS TIME. 1:1 SITTER AT BEDSIDE.
[2019-04-11] VITALS: BP 125/78
--- NOTE | 2019-04-11 | NUR ---
PT IN BED GIVEN ORDERED LIBRIUM, PT EDUCATION PROVIDED. PT VERBALIZED THAT DR. WILLIAMSON WAS HERE TO SEE HIM. PT REMINDED THAT HE WILL BE BACK IN AM TO REEVALUATE PT STATUS. PT VERBALIZED UNDERSTANDING. V/S FOLLOWS T 97.4 P 52 R 18 B/P 125/78 02 99% ON ROOM AIR. PT ALSO VOIDED ANOTHER 400MLS FROM BEDSIDE URINAL. NO S/S OF PAIN OR DISTRESS NOTED, ALL REQUESTED NEEDS ATTENDED AND 1:1 SITTER AT BEDSIDE.
[2019-04-11 04:00] VITALS: BP 130/59
[2019-04-11] MEDS: chlordiazePOXIDE 25 MG CAP PO SCH ×2 (06:00→12:02)
--- NOTE | 2019-04-11 07:32 | NUR ---
ENDORSE POC TO OKSANA RN DAYSHIFT NURSE AT BEDSIDE FOR CONTINUITY OF CARE, PT IN STABLE CONDITION.
--- NOTE | 2019-04-11 07:33 | NUR ---
RECEIVED BEDSIDE REPORT FROM LACE PAPER MACHINE OPERATOR NURSE FOR CONTINUITY OF CARE. PATIENT IS AWAKE AND LAYING SUPINE ON BED AT THIS TIME. PATIENT IS AAOX4. PATIENT IS COOPERATIVE AND CALM. RESPIRATION EVEN AND UNLABORED ON RA. DENIED OF HEARING VOICE OR SUICIDAL IDEATION. NO SIGNS OF DISTRESS NOTED. IV ON LFA 18G, CLEAN AND INTACT, SL. SKIN CLEAN AND DRY. PATIENT IS CONTINENT AND ABLE TO AMBULATE. TELE MONITOR ATTACHED. DISCUSSED PLAN OF CARE WITH AND PATIENT VERBALIZED UNDERSTANDING AND SAID " DR WILLIAMSON TALKED TO ME YESTERDAY AND I MIGHT BE GOING HOME TODAY." SAFETY MEASURES IN PLACE. BED IN LOW POSITION AND 1:1 SITTER AT BEDSIDE.
[2019-04-11 07:59] LABS: BASOPHILS % (AUTO) 0.3 % (0.0-2.0); EOSINOPHILS # (AUTO) 0.4 K/uL (0-0.4); EOSINOPHILS % (AUTO) 5.2 % (0.0-4.0); HEMATOCRIT 40.9 % (36-52); HEMOGLOBIN 13.8 g/dL (12.0-18.0); LYMPHOCYTES # (AUTO) 2.5 K/uL (2.0-11.5); LYMPHOCYTES % (AUTO) 36.5 % (20.5-51.1); MEAN CORPUSCULAR HEMOGLOBIN 27 pg (27-31); MEAN CORPUSCULAR HGB CONC 34 g/dL (33-37); MEAN CORPUSCULAR VOLUME 80.3 fL (80-94); MONOCYTES # (AUTO) 0.6 K/uL (0.8-1.0); MONOCYTES % (AUTO) 8.7 % (1.7-9.3); NEUTROPHILS # (AUTO) 3.3 K/uL (1.8-7.7); NEUTROPHILS % (AUTO) 49.3 % (42.2-75.2); PLATELET COUNT (AUTO) 170 K/uL (140-450); RED CELL DISTRIBUTION WIDTH 14.2 % (11.6-13.7); WHITE BLOOD COUNT (AUTO) 6.8 K/uL (4.8-10.8)
[2019-04-11 08:00] VITALS: BP 106/55
[2019-04-11] MEDS ORDERED: CALCIUM ACETATE 667 MG TAB PO SCH (08:00)
[2019-04-11 08:23] LABS: POTASSIUM 4.3 mmol/L (3.5-5.1)
[2019-04-11 08:24] LABS: ANION GAP 10.4 (8-16); CARBON DIOXIDE 29.9 mmol/L (21-32); CREATININE 1.2 mg/dL (0.7-1.3)
--- NOTE | 2019-04-11 08:45 | NUR ---
ADMINISTERED MED PER MD ORDER, PATIENT TOLERATED WELL. MED EDUCATION PROVIDED TO PATIENT AND PATIENT SAID OK. PATIENT IS RESTING ON BED AT THIS TIME. DENIED SUICIDAL IDEATION OR HEARING VOICE. NO SIGNS OF DISTRESS NOTED. TELE MONITOR ATTACHED. SAFETY MEASURES IN PLACE. BED IN LOW POSITION AND 1:1 SITTER BY BEDSIDE.
[2019-04-11] MEDS ORDERED: MULTIVITAMIN-12 10 ML, THIAMINE 100 MG, MAGNESIUM SULFATE 50% 2,000 MG, FOLIC ACID 1 MG... IV SCH ×5 (09:15)
--- NOTE | 2019-04-11 09:45 | NUR ---
PATIENT IS RESTING ON BED AT THIS TIME. AROUSABLE TO VOICE. PATIENT DENIED OF HEARING VOICE AND SUICIDAL IDEATION. NO SIGNS OF DISTRESS NOTED. TELE MONITOR ATTACHED. FALL PRECAUTION AND SEIZURE PRECAUTION IN PLACE. BED IN LOW POSITION AND 1:1 SITTER BY BEDSIDE.
[2019-04-11] MEDS: MULTIVITAMIN-12 10 ML, THIAMINE 100 MG, FOLIC ACID 1 MG, MAGNESIUM SULFATE 50% 2,000 MG... IV SCH ×5 (11:17)
--- NOTE | 2019-04-11 11:17 | NUR ---
ADMINISTERED BANANA BAG PER MD ORDER, PATIENT IS AWAKE AND AMBULATE TO BATHROOM WITH STEADY GAIT. DENIED SUICIDAL IDEATION OR HEARING VOICE. NO SIGN OF DISTRESS NOTED. TELE MONITOR ATTACHED. BED IN LOW POSITION AND 1:1 SITTER BY BEDSIDE.
[2019-04-11 12:00] VITALS: BP 100/56
--- NOTE | 2019-04-11 12:02 | NUR ---
ADMINISTERED MED PER MD ORDER, PATIENT TOLERATED WELL. MED EDUCATION PROVIDED TO PATIENT AND PATIENT VERBALIZED UNDERSTANDING. PATIENT IS RESTING ON BED. DENIED SUICIDAL IDEATION OR HEARING VOICE. NO SIGNS OF DISTRESS NOTED. TELE MONITOR ATTACHED. SAFETY MEASURES IN PLACE. BED IN LOW POSITION AND 1:1 SITTER BY BEDSIDE.
--- NOTE | 2019-04-11 14:05 | NUR ---
DR WILLIAMSON IS TALKING TO PATIENT AT BEDSIDE. NO SIGNS OF DISTRESS NOTED. TELE MONITOR ATTACHED. SAFETY MEASURES IN PLACE. BED IN LOW POSITION AND 1:1 SITTER.
--- NOTE | 2019-04-11 15:06 | NUR ---
DR JEFFERSON IS TALKING TO PATIENT AT BEDSIDE. NO SIGNS OF DISTRESS NOTED. TELE MONITOR IN PLACE. SAFETY MEASURES IN PLACE. BED IN LOW POSITION AND CALL LIGHT WITHIN REACH.
--- NOTE | 2019-04-11 15:15 | NUR ---
DR JEFFERSON EXPLAINED TO PATIENT AT BEDSIDE THAT HE IS NOT MEDICALLY CLEAR FOR DISCHARGE BUT PATIENT INSISTED OF LEAVING AND REQUESTED TO LEAVE AMA.
--- NOTE | 2019-04-11 15:20 | NUR ---
REMOVED IV AND CANNULA INTACT. REMOVED ALL ARM BANDS. CALLED SECURITY AND RETURNED ALL PATIENT'S BELONGINGS. PATIENT CHANGED INTO HIS OWN CLOTHES AND LEFT AT THIS TIME.
== END 2019-04-11 15:20 | disposition left against medical advice (07) | DRG 817 ==
LOC: MED 02:33 → MTU 06:59
PROVIDERS: ADMIT General Practice; ATTEND General Practice
DX: T40.7X2A Poisoning by cannabis (derivatives), intentional self-harm, initial encounter (principal); G92 Toxic encephalopathy; F20.9 Schizophrenia, unspecified; E83.39 Other disorders of phosphorus metabolism; R45.851 Suicidal ideations; Y90.8 Blood alcohol level of 240 mg/100 ml or more; Z53.21 Procedure and treatment not carried out due to patient leaving prior to being seen by health care provider; F10.129 Alcohol abuse with intoxication, unspecified; F32.9 Major depressive disorder, single episode, unspecified; E02 Subclinical iodine-deficiency hypothyroidism; F17.200 Nicotine dependence, unspecified, uncomplicated; G47.00 Insomnia, unspecified; Y92.89 Other specified places as the place of occurrence of the external cause
CPT/HCPCS: 36415; 71045; 80048; 80053; 80305; 81003; 82140; 82150; 83036; 83605; 83690; 83735; 83880; 84100; 84439; 84443; 84484; 85025; 85610; 85730; 96360; 99285; A9153; G0480; G0482; J3411; J3475; J3490; Q0092

== ENCOUNTER 2019-04-27 01:55 | Inpatient (IN) | payer MEDICAID ==
[~2019-04-27] VITALS: Ht 180.3 cm; Wt 74.4 kg
[2019-04-27 01:55] VITALS: BP 138/81
--- NOTE | 2019-04-27 01:55 | NUR ---
38/M BIBA FROM STREET FOR SI. PER EMS, PT WAS FOUND WALKING THROUGH TRAFFIC, [place] [employer] PLACED PT ON 5150 HOLD. PT ARRIVES TO ED, AOX4, GCS 15, PERRLA 3MM, SKIN NORMAL WARM AND DRY, RR EVEN AND UNLABORED. PT REPORTS L UPPER BACK PAIN X2 DAYS, DENIES TRAUMA/INJURY, NO BRUISING/SWELLING/DEFORMITY NOTED. PT DENIES SI/PLAN OR HI AT THIS TIME. PT REPORTS VAGUE AUDITORY AND VISUAL HALLUCINATIONS. 1:1 SITTER AT BEDSIDE WITH CLOSE MONITORING, SAFETY MEASURES INITIATED. HX SUICIDAL ATTEMPTS, SCHIZOPHRENIA RX ZYPREXA (BUT NONCOMPLIANT [id number])
[2019-04-27 02:08] LABS: BASOPHILS % (AUTO) 0.6 % (0.0-2.0); EOSINOPHILS # (AUTO) 0.3 K/uL (0-0.4); EOSINOPHILS % (AUTO) 3.1 % (0.0-4.0); HEMATOCRIT 39.1 % (36-52); HEMOGLOBIN 13.6 g/dL (12.0-18.0); LYMPHOCYTES # (AUTO) 3.6 K/uL (2.0-11.5); LYMPHOCYTES % (AUTO) 44.9 % (20.5-51.1); MEAN CORPUSCULAR HEMOGLOBIN 28 pg (27-31); MEAN CORPUSCULAR HGB CONC 35 g/dL (33-37); MEAN CORPUSCULAR VOLUME 79.8 fL (80-94); MONOCYTES # (AUTO) 0.7 K/uL (0.8-1.0); MONOCYTES % (AUTO) 8.7 % (1.7-9.3); NEUTROPHILS # (AUTO) 3.4 K/uL (1.8-7.7); NEUTROPHILS % (AUTO) 42.7 % (42.2-75.2); PLATELET COUNT (AUTO) 188 K/uL (140-450); RED BLOOD CELL COUNT(AUTO) 4.91 MIL/uL (4.20-6.10); RED CELL DISTRIBUTION WIDTH 14.8 % (11.6-13.7)
[2019-04-27] MEDS ORDERED: KETOROLAC 60 MG/2 ML VIAL IM ONE (02:10)
--- NOTE | 2019-04-27 02:10 | NUR ---
PER , TELEPSYCH REQUEST INITIATED
[2019-04-27 02:17] LABS: ANION GAP 13.2 (8-16); CARBON DIOXIDE 26.7 mmol/L (21-32); CHLORIDE 104 mmol/L (98-107); GFR ARICAN-AMERICAN 107 mL/min (>90); GLUCOSE 114 mg/dL (74-106); POTASSIUM 3.9 mmol/L (3.5-5.1); SODIUM SERUM 140 mmol/L (136-145); UREA NITROGEN, BLOOD 8 mg/dL (7-18)
[2019-04-27 02:19] LABS: APPEARANCE,URINE CLEAR (CLEAR); BILIRUBIN,URINE NEGATIVE (NEGATIVE); BLOOD, URINE NEGATIVE (NEGATIVE); COLOR,URINE YELLOW (YELLOW); LEUKOCYTE ESTERASE ,URINE NEGATIVE (NEGATIVE); NITRITE, URINE NEGATIVE (NEGATIVE); UGLUCOSE NEGATIVE (NEGATIVE)
[2019-04-27 02:22] LABS: ACETAMINOPHEN < 0.5 ug/ml (10-30); ALBUMIN 3.6 g/dL (3.4-5.0); ASPARTATE AMINOTRANSFERASE 21 U/L (15-37); SALICYLATE < 2.8 mg/dL (2.8-20.0); TOTAL BILIRUBIN 0.7 mg/dL (0.0-1.0)
[2019-04-27 02:25] LABS: BARBITURATE, URINE NEG. ng/ml (NEG <=200); BENZODIAZEPINE, URINE NEG. ng/mL (NEG <=200); CANNABINOID, URINE POS. ng/mL (NEG <=50); COCAINE, URINE NEG. ng/mL (NEG <=300); OPIATE, URINE NEG. ng/mL (NEG <=2000); PHENCYCLIDINE SCREEN,URINE NEG. ng/mL (NEG <=25)
--- NOTE | 2019-04-27 02:45 | NUR ---
GAVE REPORT TO TELEPSYCH MD DR YU
--- NOTE | 2019-04-27 02:46 | NUR ---
DR YU SPEAKING TO PT VIA TELEPSYCH
--- NOTE | 2019-04-27 02:59 | NUR ---
RECEIVED CALL FROM DR YU, RECOMMENDATION TO KEEP 5150 HOLD AND TRANSFER FOR INPATIENT PSYCHIATRIC FACILITY. DR NG MADE AWARE.
--- NOTE | 2019-04-27 03:06 | NUR ---
[place] [facility] [place]150 [place], POLICE UNIT ON THE WAY
--- NOTE | 2019-04-27 03:10 | NUR ---
RECEIVED REPORT FROM BARRY GUZMAN. ASSUMED CARE AT THIS TIME.
--- NOTE | 2019-04-27 03:45 | NUR ---
PT ASLEEP. VISIBLE CHEST RISE AND FALL NOTED. SAFETY MEASURES IN PLACE WITH 1:1 MONITORING. BED IN LOWEST POSITION. WILL CONTINUE TO MONITOR.
--- NOTE | 2019-04-27 03:49 | NUR ---
OFFICER MARCOS AMENDED 5150 HOLD DOCUMENTATION.
--- NOTE | 2019-04-27 05:30 | NUR ---
PT ASLEEP. VISIBLE CHEST RISE AND FALL NOTED. SAFETY MEASURES IN PLACE WITH EMT 1:1 MONITORING. BED IN LOWEST POSITION. WILL CONTINUE TO MONITOR.
--- NOTE | 2019-04-27 06:03 | NUR ---
BLOOD DRAWN AND TAKEN TO LAB.
--- NOTE | 2019-04-27 07:12 | NUR ---
RECEIVED REPORT FROM CHRISTA REDDY
--- NOTE | 2019-04-27 07:12 | NUR ---
REPORT GIVEN TO BARRY MCINTOSH. TRANSFER OF CARE AT THIS TIME
--- NOTE | 2019-04-27 07:55 | NUR ---
PT RESTING IN BED, AAOX4, SAT PT UP AND HE IS EATING BREAKFAST AT THIS TIME, VSS.
--- NOTE | 2019-04-27 09:56 | NUR ---
PER DR. ZENG PT IS MEDICALLY CLEAR.
--- NOTE | 2019-04-27 11:08 | NUR ---
PT SLEEPING IN BED, AROUSABLE TO NAME, AAOX4, DENIES PAIN AT THIS TIME, ODAKU SITTING 1-1 AT THIS TIME.
--- NOTE | 2019-04-27 13:27 | NUR ---
Called the following facilities: [facility] s/w Yaim[place] no beds, packet fax for wait list [facility] s/w Jett no beds, packet fax for wait list [facility] s/w Colette no beds [facility] s/w Hardeep no beds [facility] s/w Breana no beds [facility] s/w Maryellen, packet fax for review [facility] s/w Chavez no beds
--- NOTE | 2019-04-27 13:29 | NUR ---
[facility] s/w Felicia packet fax for review
--- NOTE | 2019-04-27 13:55 | NUR ---
PT RESTING IN BED, AROUSABLE TO NAME, VOICE CLEAR, AAOX4, DENIES PAIN AT THIS TIME. PT HAS LUNCH AT BEDSIDE TABLE.
[2019-04-27] MEDS ORDERED: ONDANSETRON 4 MG/2 ML VIAL IVP PRN (14:45)
[2019-04-27] MEDS ORDERED: ACETAMINOPHEN 325 MG TAB PO PRN (14:45)
--- NOTE | 2019-04-27 14:52 | NUR ---
X-RAY AT BEDSIDE
[2019-04-27 15:10] VITALS: BP 124/80
--- NOTE | 2019-04-27 15:10 | NUR ---
Patient will be admitted to care of ABAD. Admited to MED/SURG. Will go to room 109A. Belongings list completed. Report to MARIA EUGENIA REDDY.
--- NOTE | 2019-04-27 15:10 | NUR ---
PATIENT ARRIVED ON [facility] UNIT VIA WHEELCHAIR. AMBULATED TO [facility] BED WITH STEADY GAIT. NO DISTRESS NOTED. DENIES ANY PAIN. AAOX4, CALM, COOPERATIVE, SKIN COLOR APPROPRIATE TO ETHNICITY, WARM TO TOUCH. SKIN INTACT. IV SITE INTACT, PATENT, ON SALINE LOCK. DENIES ANY THOUGHT OF HARMING SELF AT THIS TIME. REVIEWED PLAN OF CARE WITH PATIENT. PATIENT VERBALIZED UNDERSTANDING. SITTER AT BEDSIDE. WILL CONTINUE TO MONITOR.
[2019-04-27 16:29] LABS: PROTHROMBIN TIME 10.5 secs (10.8-13.4)
--- NOTE | 2019-04-27 19:07 | NUR ---
GAVE REPORT TO SMOOTH STUCCO RESURFACER NURSE FOR CONTINUITY OF CARE. PATIENT IN STABLE CONDITION.
--- NOTE | 2019-04-27 19:10 | NUR ---
Received endorsement from AM shift RN; patient A/Ox4, able to make needs known, Nauruan speaking, ambulatory. Patient resting quietly in bed; introduced self, updated board. No SOB or distress noted, on room air. IV site noted on left forearm, 20 gauge, saline locked. Skin intact. Bed in the lowest position, call light within reach. Initial assessment done. Will continue to monitor.
[2019-04-27 19:21] LABS: FREE T4 (FREE THYROXINE) 0.65 ng/dL (0.76-1.46); MAGNESIUM 1.7 mg/dL (1.8-2.4); PHOSPHORUS 2.7 mg/dL (2.5-4.9); THYROID STIMULATING HORMONE 1.8 uIU/mL (0.34-3.74)
--- NOTE | 2019-04-27 21:30 | NUR ---
Dr. Flores came to assess patient; patient is to remain 51/50 hold.
[2019-04-27] MEDS: DOCUSATE SODIUM 100 MG GELCAP PO SCH (21:34)
--- NOTE | 2019-04-27 21:48 | NUR ---
Due meds given, tolerated well.
[2019-04-27] MEDS ORDERED: LORazepam 1 MG TAB PO SCH (22:00)
[2019-04-27] MEDS ORDERED: LORazepam 2 MG/ML VIAL IVP PRN (22:35)
--- NOTE | 2019-04-27 23:50 | NUR ---
Checks made; patient asleep, eyes closed, visible chest rise and fall noted.
[2019-04-28] VITALS: BP 124/63
--- NOTE | 2019-04-28 02:10 | NUR ---
Rounds done; patient asleep, visible chest rise and fall noted.
--- NOTE | 2019-04-28 04:01 | NUR ---
Patient resting comfortable on right lateral side, visible chest rise and fall noted.
--- NOTE | 2019-04-28 06:10 | NUR ---
Vitals stable, due meds given. Will endorse to AM shift RN for continuity of care.
[2019-04-28 07:12] LABS: ANION GAP 10.4 (8-16); CREATININE 1.2 mg/dL (0.7-1.3); POTASSIUM 4.4 mmol/L (3.5-5.1)
--- NOTE | 2019-04-28 07:15 | NUR ---
RECEIVED BEDSIDE REPORT FROM MANAGER COMMERCIAL SALES NURSE FOR CONTINUITY OF CARE. PATIENT IS RESTING ON BED AT THIS TIME. PATIENT IS AROUSABLE TO VOICE. PATIENT IS AAOX3, TO NAME, PLACE AND TIME. PATIENT IS ABLE TO FOLLOW SIMPLE COMMANDS AND MAKE NEEDS KNOWN. MOOD CALM AND COOPERATIVE. DENIED HEARING VOICES AND ANY SUICIDAL IDEATION THOUGHT. RESPIRATION EVEN AND UNLABORED ON RA. DENIED PAIN AND SOB. NO SIGNS OF DISTRESS NOTED. IV ON LFA 20G, CLEAN AND INTACT, SL. SKIN CLEAN AND INTACT, NO WOUND. PATIENT IS CONTINENT AND ABLE TO AMBULATE WITH STANDBY ASSIST. DISCUSSED PLAN OF CARE WITH PATIENT AND PATIENT VERBALIZED UNDERSTANDING. SAFETY MEASURES IN PLACE. BED IN LOW POSITION AND 1:1 SITTER BY BEDSIDE.
[2019-04-28 07:20] LABS: CHOL/HDL RATIO 2.6 (1-4.5); MAGNESIUM 1.6 mg/dL (1.8-2.4); PHOSPHORUS 3.3 mg/dL (2.5-4.9)
[2019-04-28 07:30] LABS: BASOPHILS % (AUTO) 0.5 % (0.0-2.0); EOSINOPHILS # (AUTO) 0.3 K/uL (0-0.4); EOSINOPHILS % (AUTO) 3.9 % (0.0-4.0); HEMATOCRIT 40.3 % (36-52); HEMOGLOBIN 13.6 g/dL (12.0-18.0); LYMPHOCYTES # (AUTO) 3.3 K/uL (2.0-11.5); LYMPHOCYTES % (AUTO) 41.7 % (20.5-51.1); MEAN CORPUSCULAR HEMOGLOBIN 27 pg (27-31); MEAN CORPUSCULAR HGB CONC 34 g/dL (33-37); MONOCYTES # (AUTO) 0.6 K/uL (0.8-1.0); MONOCYTES % (AUTO) 7.5 % (1.7-9.3); NEUTROPHILS # (AUTO) 3.6 K/uL (1.8-7.7); NEUTROPHILS % (AUTO) 46.4 % (42.2-75.2); PLATELET COUNT (AUTO) 177 K/uL (140-450); RED BLOOD CELL COUNT(AUTO) 4.98 MIL/uL (4.20-6.10); RED CELL DISTRIBUTION WIDTH 14.6 % (11.6-13.7); WHITE BLOOD COUNT (AUTO) 7.9 K/uL (4.8-10.8)
[2019-04-28 08:00] VITALS: BP 137/76
[2019-04-28] MEDS ORDERED: MULTIVITAMIN-12 10 ML, THIAMINE 100 MG, MAGNESIUM SULFATE 50% 2,000 MG, FOLIC ACID 1 MG... IV ONE ×5 (08:00)
--- NOTE | 2019-04-28 08:06 | NUR ---
ADMINISTERED BANANA BAG PER MD ORDER, MED EDUCATION PROVIDED TO PATIENT AND PATIENT VERBALIZED UNDERSTANDING. PATIENT IS RESTING ON BED AT THIS TIME. DENIED HEARING VOICES AND SUICIDAL IDEATION. NO SIGNS OF DISTRESS NOTED. SAFETY MEASURES IN PLACE. BED IN LOW POSITION AND 1:1 SITTER BY BEDSIDE.
--- NOTE | 2019-04-28 09:03 | NUR ---
PATIENT HAS BEEN SCREENED AND CATEGORIZED LOW NUTRITION RISK. PATIENT WILL BE SEEN WITHIN 7 DAYS OF ADMISSION. 05/04/[address]
[2019-04-28] MEDS: MULTIVITAMIN 1 TAB PO SCH (09:31)
[2019-04-28] MEDS: DOCUSATE SODIUM 100 MG GELCAP PO SCH ×2 (09:31→21:13)
[2019-04-28] MEDS: FAMOTIDINE 20 MG TAB PO SCH (09:31)
[2019-04-28] MEDS: THIAMINE 100 MG TAB PO SCH (09:31)
[2019-04-28] MEDS: chlordiazePOXIDE 25 MG CAP PO SCH ×3 (09:31→17:09)
[2019-04-28] MEDS: FOLIC ACID 1 MG TAB PO SCH (09:32)
--- NOTE | 2019-04-28 09:35 | NUR ---
ADMINISTERED MEDS PER MD ORDER, PATIENT TOLERATED WELL. MEDS EDUCATION PROVIDED TO PATIENT AND PATIENT VERBALIZED UNDERSTANDING. PATIENT STATED " I WANT TO TALK TO THE PSYCHIATRIC DR AND I AM READY TO GO HOME. I AM NOT GOING TO DO ANYTHING TO HURT MYSELF." EXPLAINED TO PATIENT THAT DR ANDINO WILL BE IN THE UNIT BUT I AM NOT SURE ABOUT THE EXACT TIME. PATIENT WAS AWARE. PATIENT AWAKE AND RESTING ON BED AT THIS TIME. DENIED HEARING VOICES AND HAVING SUICIDAL IDEATION. PATIENT CALM AND COOPERATIVE. NO SIGNS OF DISTRESS NOTED. SAFETY MEASURES IN PLACE. BED IN LOW POSITION AND 1:1 SITTER BY BEDSIDE.
[2019-04-28] MEDS ORDERED: MAGNESIUM OXIDE 400 MG TAB PO SCH (10:00)
--- NOTE | 2019-04-28 11:45 | NUR ---
PATIENT IS RESTING ON BED. EVEN AND UNLABORED CHEST RISES ON RA NOTED. DENIED HEARING VOICES AND SUICIDAL IDEATION. NO SIGNS OF DISTRESS NOTED. SAFETY MEASURES IN PLACE. BED IN LOW POSITION AND 1:1 SITTER BY BEDSIDE.
--- NOTE | 2019-04-28 12:02 | NUR ---
Called the following facilities: [facility] s/w Jett no beds [facility] s/w Jeremiah no beds [facility] s/w [place] no beds [facility] s[facility]w [place] no beds [facility] s/w Simran no beds [facility] s/w Pan no beds [place] s/w Miriam no beds [facility] s/w Joycelyn packet fax for review [facility] s/w Clarisa packet fax for review
--- NOTE | 2019-04-28 12:58 | NUR ---
ADMINISTERED MED PER MD ORDER, PATIENT TOLERATED WELL. MED EDUCATION PROVIDED TO PATIENT, PATIENT VERBALIZED UNDERSTANDING. PATIENT AWAKE AND RESTING ON BED AT THIS TIME. DENIED SUICIDAL IDEATION AND HEARING VOICES. NO SIGNS OF DISTRESS NOTED. SAFETY MEASURES IN PLACE. BED IN LOW POSITION AND 1:1 SITTER AT BEDSIDE.
--- NOTE | 2019-04-28 13:15 | NUR ---
PATIENT IS NAPPING ON BED AT THIS TIME. EVEN AND UNLABORED CHEST RISES IN RA NOTED. FLACC 0. NO SIGNS OF DISTRESS NOTED. SAFETY MEASURES IN PLACE. BED IN LOW POSITION AND 1:1 SITTER BY BEDSIDE.
--- NOTE | 2019-04-28 13:45 | NUR ---
PATIENT AWAKE AND RESTING ON BED AT THIS TIME. DENIED HEARING VOICES AND SUICIDAL IDEATION. MOOD CALM AND COOPERATIVE. NO SIGNS OF DISTRESS NOTED. SAFETY MEASURES IN PLACE. BED IN LOW POSITION AND 1:1 SITTER BY BEDSIDE.
--- NOTE | 2019-04-28 15:12 | NUR ---
PATIENT IS SITTING UP ON BED. DENIED HEARING VOICES AND SUICIDAL IDEATION. MOOD CALM AND COOPERATIVE. NO SIGNS OF DISTRESS NOTED. SAFETY MEASURES IN PLACE. BED IN LOW POSITION AND 1:1 SITTER BY BEDSIDE.
[2019-04-28 16:00] VITALS: BP 132/79
--- NOTE | 2019-04-28 16:19 | NUR ---
S/W Ramin at [facility] regarding packet. States that packet is still in line for review. States that they have other packets they are reviewing. S/W Unique at [facility] for an update. States that pm shift will start reviewing chart if bed becomes available
--- NOTE | 2019-04-28 16:47 | NUR ---
Received call from [facility]. States that they do not take out of [place] [phone]
--- NOTE | 2019-04-28 17:09 | NUR ---
ADMINISTERED MED PER MD ORDER, PATIENT TOLERATED WELL. MED EDUCATION PROVIDED TO PATIENT AND PATIENT VERBALIZED OK. PATIENT AWAKE AND RESTING ON BED. MOOD CALM AND COOPERATIVE. DENIED HEARING VOICES AND SUICIDAL IDEATION. NO SIGNS OF DISTRESS NOTED. SAFETY MEASURES IN PLACE. BED IN LOW POSITION AND 1:1 SITTER BY BEDSIDE.
--- NOTE | 2019-04-28 19:08 | NUR ---
ENDORSED PATIENT AT BEDSIDE TO REGISTERED NURSE FETAL NURSE FOR CONTINUITY OF CARE. PATIENT AWAKE AND SITTING UP ON BED. NO SIGNS OF DISTRESS NOTED. PATIENT IS IN STABLE CONDITION. SAFETY MEASURES IN PLACE. BED IN LOW POSITION AND 1:1 SITTER BY BEDSIDE.
--- NOTE | 2019-04-28 19:09 | NUR ---
RECEIVED BEDSIDE REPORT FROM AM SHIFT NURSE FOR CONTINUITY OF CARE. PATIENT IS RESTING ON BED AT THIS TIME. PATIENT IS AROUSABLE TO VOICE. PATIENT IS AAOX3, TO NAME, PLACE AND TIME. PATIENT IS ABLE TO FOLLOW SIMPLE COMMANDS AND MAKE NEEDS KNOWN. MOOD CALM AND COOPERATIVE. DENIED HEARING VOICES AND ANY SUICIDAL IDEATION THOUGHT. RESPIRATION EVEN AND UNLABORED ON RA. DENIED PAIN AND SOB. NO SIGNS OF DISTRESS NOTED. IV ON LFA 20G, CLEAN AND INTACT, SL. SKIN CLEAN AND INTACT, NO WOUND. PATIENT IS CONTINENT AND ABLE TO AMBULATE WITH STANDBY ASSIST. POC REVIEWED W/ WITH PATIENT AND PATIENT VERBALIZED UNDERSTANDING. SAFETY MEASURES IN PLACE. BED IN LOW POSITION AND 1:1 SITTER BY BEDSIDE.
[2019-04-28] MEDS: OLANZapine 5 MG TAB PO SCH (21:14)
[2019-04-28] MEDS ORDERED: ZOLPIDEM 5 MG TAB ONE (21:31)
--- NOTE | 2019-04-28 21:31 | NUR ---
PT ASKED FOR A SLEEPING PILL INFORMED DR. GALLARDO, SHE WILL PLACE AN ORDER FOR AMBIEN
[2019-04-28] MEDS: ZOLPIDEM 5 MG TAB PO SCH (21:32)
--- NOTE | 2019-04-28 23:43 | NUR ---
PT SLEEPING AT THIS TIME, CALM AND NO SIGNS OF RESPIRATORY DISTRESS
--- NOTE | 2019-04-29 01:52 | NUR ---
PT SLEEPING AT THIS TIME, NO COMPLAINTS, NO S/ SX'S OF SUICIDAL IDEATION.
--- NOTE | 2019-04-29 03:10 | NUR ---
PATIENT IS RESTING, APPEARS SLEEPING COMFORTABLY, SITTER AT BEDSIDE, NO SIGNS OF DISTRESS, WILL CONTINUE TO MONITOR FOR CHANGES IN CONDITION.
[2019-04-29 04:00] VITALS: BP 115/52
--- NOTE | 2019-04-29 04:10 | NUR ---
PT WANTS TO TALK TO DR. WILLIAMSON BECAUSE HE SAID HE WANTS TO GO HOME.DR. WILLIAMSON DID NOT COME LAST NIGHT WILL ENDORSE TO NEXT SHIFT Addendum: 04/29/19 at 0650 by Sharmin Kemp RN DR. WILLIAMSON VISITED PT IN THE AM 04/28
--- NOTE | 2019-04-29 06:16 | NUR ---
No placement found at any of the designated facilities will endorsed to AM shift to continue to look for placement.
--- NOTE | 2019-04-29 06:39 | NUR ---
PT ASLEEP BUT EASILY AROUSABLE TO VERBAL STIMULI, NOT IN RESPIRATORY DISTRESS. PT STABLE AT THIS TIME.
[2019-04-29 07:02] LABS: BASOPHILS % (AUTO) 0.4 % (0.0-2.0); EOSINOPHILS # (AUTO) 0.3 K/uL (0-0.4); EOSINOPHILS % (AUTO) 3.7 % (0.0-4.0); HEMOGLOBIN 13.9 g/dL (12.0-18.0); LYMPHOCYTES # (AUTO) 3.4 K/uL (2.0-11.5); LYMPHOCYTES % (AUTO) 40.9 % (20.5-51.1); MEAN CORPUSCULAR HEMOGLOBIN 27 pg (27-31); MEAN CORPUSCULAR HGB CONC 34 g/dL (33-37); MONOCYTES # (AUTO) 0.7 K/uL (0.8-1.0); MONOCYTES % (AUTO) 9.1 % (1.7-9.3); NEUTROPHILS # (AUTO) 3.8 K/uL (1.8-7.7); NEUTROPHILS % (AUTO) 45.9 % (42.2-75.2); PLATELET COUNT (AUTO) 165 K/uL (140-450); RED BLOOD CELL COUNT(AUTO) 5.06 MIL/uL (4.20-6.10); RED CELL DISTRIBUTION WIDTH 14.8 % (11.6-13.7); WHITE BLOOD COUNT (AUTO) 8.2 K/uL (4.8-10.8)
[2019-04-29 07:17] LABS: ANION GAP 11.7 (8-16); CARBON DIOXIDE 26.7 mmol/L (21-32); CREATININE 1.1 mg/dL (0.7-1.3); POTASSIUM 4.4 mmol/L (3.5-5.1)
[2019-04-29 07:23] LABS: MAGNESIUM 1.7 mg/dL (1.8-2.4); PHOSPHORUS 3.4 mg/dL (2.5-4.9)
[2019-04-29] MEDS: chlordiazePOXIDE 25 MG CAP PO SCH (10:48)
[2019-04-29] MEDS: THIAMINE 100 MG TAB PO SCH (10:48)
[2019-04-29] MEDS: FOLIC ACID 1 MG TAB PO SCH (10:48)
[2019-04-29] MEDS: FAMOTIDINE 20 MG TAB PO SCH (10:48)
[2019-04-29] MEDS: MULTIVITAMIN 1 TAB PO SCH (10:48)
[2019-04-29] MEDS: DOCUSATE SODIUM 100 MG GELCAP PO SCH ×2 (10:48→20:52)
--- NOTE | 2019-04-29 10:57 | NUR ---
PER [facility] OF [facility], NO LUCK IN FINDING PLACEMENT YET. HE STATED THAT THEY SEND REFERRALS TO [facility] AND [facility]. HE ALSO STATED THAT [facility] DENIED THE PATIENT.
--- NOTE | 2019-04-29 11:03 | NUR ---
CONTACTED [facility], ABLE TO SPEAK WITH BECCA. SHE STATED THEY DO NOT HAVE A MALE BED BUT TO GO AHEAD AND FAX THE REFERRAL TO [phone]. CLINICALS FAXED TO THE PROVIDED NUMBER.
[2019-04-29] MEDS ORDERED: MAGNESIUM OXIDE 400 MG TAB PO SCH (12:00)
--- NOTE | 2019-04-29 12:44 | NUR ---
Called the following facilities: [facility] s/w Bev no beds [facility] s/w Jeremiah no beds [facility] s/w Bree no beds [facility] s/w Hardeep no beds [facility] s/w Mandy no beds
--- NOTE | 2019-04-29 13:04 | NUR ---
[facility] s/w Chavez no beds [facility] s/w Miriam no beds [facility] s/w Ralph packet fax for review
--- NOTE | 2019-04-29 13:15 | NUR ---
PT BACK FROM PROCEDURE TO REPLACE G-TUBE. PT BREATHING EVEN AND UNLABORED ON 3L NC. WILL CONTINUE WITH CARE AND POST-OP VITALS.
--- NOTE | 2019-04-29 14:00 | NUR ---
PT IN BED SLEEPING. BREATHING EVEN AND UNLABORED. WILL CONTINUE TO ASSESS FOR CHANGES IN CONDITION .
--- NOTE | 2019-04-29 15:00 | NUR ---
PT IN BED SLEEPING. BREATHING EVEN AND UNLABORED. WILL CONTINUE TO ASSESS FOR CHANGES IN CONDITION .
[2019-04-29 16:00] VITALS: BP 122/66
--- NOTE | 2019-04-29 16:30 | NUR ---
PT IN BED SLEEPING. BREATHING EVEN AND UNLABORED. WILL CONTINUE TO ASSESS FOR CHANGES IN CONDITION .
--- NOTE | 2019-04-29 19:05 | NUR ---
REPORT GIVEN TO NIGHT NURSEЕКАТЕРИНА. PT IN BED. AAOX4. BREATHING EVEN AND UNLABORED, NO SIGNS OF ACUTE DISTRESS AT THIS TIME. CARE ENDORSED TO ASBESTOS SHINGLE ROOFER.
--- NOTE | 2019-04-29 19:15 | NUR ---
RECD. RESTING IN BED COMFORTABLY, A/OX4. RESPIRATION EVEN AND UNLABORED. IV SALINE LOCK AT THE LEFT FOREARM G20, PATENT AND INTACT. STATED HE HAD NO THOUGHTS OF HURTING HIMSELF NOR HEARING VOICES. PLAN OF CARE FOR THE SHIFT DISCUSSED. VERBALIZED UNDERSTANDING. DENIES PAIN 0/10.WILL CONTINUE TO MONITOR FOR SAFETY BEING THE NURSE SITTER.
--- NOTE | 2019-04-29 19:40 | NUR ---
BEDSIDE REPORT GIVEN TO NIGHT RN JOSELO. PT IN BED, AWAKE AND ALERT. D5 1/2 NS AT 50 ML/HR INFUSING TO 22G ON R WRIST. PT BREATHING EVEN AND UNLABORED. WILL ENDORSE CARE TO NIGHT RN. Addendum: 04/29/19 at 2012 by Lurdes Griffith RN WRONG PT. DISREGARD NOTE.
--- NOTE | 2019-04-29 20:00 | NUR ---
ADVISED GIVEN TO STOP DRINKING ALCOHOL. CLAIMED HE ONLY DRINKS TWO BIG BOTTLE OF BEER EVERY OTHER DAY. REMINDED ON THE BAD EFFECTS OF ALCOHOL IN THE BODY. JUST LISTENED AND DID NOT GIVE ANY COMMENT.
[2019-04-29] MEDS: OLANZapine 5 MG TAB PO SCH (20:37)
[2019-04-29] MEDS: ZOLPIDEM 5 MG TAB PO SCH (20:37)
--- NOTE | 2019-04-29 20:37 | NUR ---
DUE PO MEDICATION FOR THE NIGHT GIVEN, COOPERATIVE. STATED HE WAS NOT ABLE TO SLEEP WELL LAST NIGHT, WANTS A SLEEPING PILL. MEDICATED WITH AMBIEN ORDERED.
--- NOTE | 2019-04-29 20:52 | NUR ---
WILMER CONTRERAS STATED HE HAD BM TWICE TODAY.
--- NOTE | 2019-04-29 21:20 | NUR ---
DR. ANDINO CAME AND DISCONTINUED 5150 HOLD.
[2019-04-30] VITALS: BP 120/67
--- NOTE | 2019-04-30 | NUR ---
SLEEPING COMFORTABLY IN BED.
--- NOTE | 2019-04-30 04:00 | NUR ---
STILL SLEEPING COMFORTABLY IN BED.
--- NOTE | 2019-04-30 05:34 | NUR ---
Patient's Plan of Care was discussed and reviewed with BIOMEDICAL INSTRUMENT TECHNICIAN: COLTON MCDONNELL LVN
--- NOTE | 2019-04-30 07:15 | NUR ---
ABLE TO SLEEP WELL. CONDITION REMAIN STABLE. ENDORSED TO AM SHIFT NURSE FOR CONTINUITY OF CARE.
--- NOTE | 2019-04-30 07:20 | NUR ---
RECEIVED PT FROM AIRLINE PILOT FLIGHT INSTRUCTOR NURSEЕКАТЕРИНА, PT IS ASLEEP AND RESPIRATION IS EVEN, IV LINE ON THE LEFT AC G. 20 ON SALINE LOCK, NO SIGN OF DISTRESS NOTED NOT ON A 5150 HOLD ANYMORE, WILL CONTINUE TO MONITOR PT.
[2019-04-30 08:00] VITALS: BP 115/66
[2019-04-30] MEDS: FOLIC ACID 1 MG TAB PO SCH (09:59)
[2019-04-30] MEDS: THIAMINE 100 MG TAB PO SCH (09:59)
[2019-04-30] MEDS: MULTIVITAMIN 1 TAB PO SCH (09:59)
[2019-04-30] MEDS: DOCUSATE SODIUM 100 MG GELCAP PO SCH (09:59)
--- NOTE | 2019-04-30 09:59 | NUR ---
PT IS AWAKE AND VITAL SIGNS WAS TAKEN AND IS STABLE AND ORAL MEDICATIONS WERE GIVEN AND PT TOLERATED IT. WILL MONITOR PT.
[2019-04-30] MEDS: FAMOTIDINE 20 MG TAB PO SCH (10:00)
--- NOTE | 2019-04-30 11:45 | NUR ---
PT SIGNED THE DISCHARGE PAPERS AND BUS PASS WAS GIVEN, PT WILL LEAVE AFTER EATING HIS LUNCH.
--- NOTE | 2019-04-30 12:16 | NUR ---
DISCHARGED PT TO HOME, BUS PASS GIVEN, DISCHARGED INSTRUCTIONS AND MEDICATION INSTRUCTIONS GIVEN TO PT AND VERBALIZED UNDERSTANDING, IV LINE AND ARM BAND REMOVED, PT IS STABLE AT THIS TIME.
== END 2019-04-30 12:16 | disposition home or self-care (01) | DRG 816 ==
LOC: MED 01:55 → MTU 14:42
PROVIDERS: ADMIT General Practice; ATTEND General Practice
DX: T51.0X1A Toxic effect of ethanol, accidental (unintentional), initial encounter (principal); G92 Toxic encephalopathy; F20.9 Schizophrenia, unspecified; E83.42 Hypomagnesemia; F10.129 Alcohol abuse with intoxication, unspecified; R45.851 Suicidal ideations; F17.200 Nicotine dependence, unspecified, uncomplicated; F12.90 Cannabis use, unspecified, uncomplicated; Y90.7 Blood alcohol level of 200-239 mg/100 ml; F32.9 Major depressive disorder, single episode, unspecified; Z79.899 Other long term (current) drug therapy; Z83.3 Family history of diabetes mellitus; Y92.89 Other specified places as the place of occurrence of the external cause
CPT/HCPCS: 36415; 71045; 80048; 80053; 80305; 81003; 82140; 82150; 83036; 83690; 83735; 83880; 84100; 84439; 84443; 84484; 85025; 85610; 85730; 87081; 93005; 96372; 99285; A9153; G0480; G0482; J1885; J3411; J3475; J3490; J7030; Q0092